=== PATIENT | male | born 1975 | race Caucasian/White ===

== ENCOUNTER 2023-05-19 00:53 | Emergency (ER) | payer MEDICAID, SELFPAY ==
[2023-05-19 00:59] VITALS: BP 183/123; PULSE 105; RESP 18; TEMP 37; O2SAT 98
--- NOTE | 2023-05-19 01:00 | DI.RAD_ITS ---
Exam(s) XR SHOULDER LT COMPLETE 2+V EXAM: XR SHOULDER LT COMPLETE 2+V CLINICAL HISTORY: pain s/p fall. TECHNIQUE: 2D digital imaging was performed. Three views. COMPARISON: No exams were available for comparison FINDINGS: BONES: There is a comminuted fracture of the humeral head and neck with involvement of the greater tu berosity. Chronic appearing density noted near AC joint. No bony destructive lesion is seen. JOINTS: No dislocation present. Mild widening of glenohumeral joint consistent with effusion. AC angelia int not widened. SOFT TISSUE: Normal. IMPRESSION: Mildly displaced humeral head and neck fracture. DATA REPOSITORY: RADIATION DOSE DELIVERED:
--- NOTE | 2023-05-19 01:07 | ED.GENADUL_ITS ---
Discharge Plan Disposition Patient Disposition: Home Condition: Stable Discharge Details Clinical Impression: Fracture of left shoulder ED Provider: Gavino Garza Discharge Instructions Instructions: Arm Fracture in Adults (ED) Additional Instructions: Call orthopedics later today to make a follow up appointment if you feel more ill, have severe worsening of pain or new pain such as head pain return to the emergency department Referrals: Will Umanzor MD [ [facility] STAFF PHYSICIAN] - Medical Decision Making 48 yo male who denies chronic medical problems comes in with left shoulder pain. HE states he was walking in his house within the last hour when he tripped on his shoe laces, landing on his left shoulder. Denies hitting his head or loc and denies preceding symptoms to the fall, states it was purely mechanical. He is caox4 on arrival with clear speech. No headache, neck pain, back pain, chest or abdomen pain, only has pain in the left shoulder area. No midline c/t/l spine tenderness, no signs of trauma to the head, perrl, eomi, no chest or abdomen tenderness. HE has tenderness over the left lateral shoulder and limited rom due to pain, intact distal sensation and pulses. No pain in the elbow, forearm, wrist or hand. Will obtain xrays of the shoulder, do not feel any labs or other imaging indicated at this time xray on my read shows shoulder fracture no shoulder dislocation. HE doesn't want to wait for vrad read, will call if they see anything else. Placed on ortho follow up list, return precautions given Differential Diagnosis Differential Diagnosis: sprain, contusion, fracture, dislocation Imaging Data Radiologic Study: Attestation: I personally reviewed and interpreted this imaging study as follows: Imaging: X-Ray My impression: xray on my read proximal humerus fracture, no shoulder dislocation HPI General Mode of arrival: ambulatory . Date/Time Provider Initiated Documentation: 05/19/23 00:55 . Limitations to Documentation: no limitations . Information obtained by: patient . History of Present Illness 48 year old M presents to the emergency department with the chief complaint of left shoulder pain, described as moderate, Patient started experiencing this hour(s) (1) and it has been constant. No relieving factors improve symptom(s), No exacerbating factors reported . Patient notes no other symptoms.. Patient did receive the following treatments prior to arrival, none Related Data Allergies Allergy/AdvReac Type Severity Reaction Status Date / Time No Known Allergies Allergy Unverified 05/19/23 01:32 General Stated Complaint: Orthopedic MARLEN: 3 Review of Systems All systems reviewed & are unremarkable except as noted in HPI and below Constitutional Constitutional: Denies chills, Denies fever(s) and Denies weakness Eyes Eyes: Denies loss of vision Cardiovascular Cardiovascular: Denies chest pain and Denies dyspnea Respiratory Respiratory: Denies cough and Denies dyspnea Gastrointestinal Gastrointestinal: Denies abdominal pain, Denies nausea and Denies vomiting Musculoskeletal Musculoskeletal: Denies joint swelling Neurologic Neurologic: Denies loss of vision and Denies weakness PFSH All Active Problems (Updated 05/19/23 @ 01:40 by Gavino Garza MD) Fracture of left shoulder (Acute) Social History Smoking/Tobacco Use Status: Current every day Tobacco Type: cigarettes Smoking risk assessment performed?: Yes Substance use type: marijuana Exam Const General: no acute distress Orientation: alert HENMT Head: normal to inspection Ears: external ears normal General nose exam: external nose normal Mouth: moist mucous membranes Eyes General: appearance normal, both eyes and all related structures Neck Neck: normal visual inspection Resp Effort & Inspection: normal respiratory effort and able to speak in complete sentences Cardio Rate: regular rate Skin General skin exam: no rashes or lesions noted Neuro General: patient alert and patient oriented x3 Extrem General: normal to inspection and capillary refill normal Psych Mental Status: mental status grossly normal Course Vital Signs Vital signs: Vital Signs Temperature 37.0 C 05/19/23 00:59 Pulse 105 H 05/19/23 00:59 Respiratory Rate 18 05/19/23 00:59 Blood Pressure 183/123 H 05/19/23 00:59 Pulse Oximetry 98 05/19/23 00:59 Temperature 37.0 C 05/19/23 00:59 Pulse 105 H 05/19/23 00:59 Respiratory Rate 18 05/19/23 00:59 Respiratory Effort Normal, Non-Labored 05/19/23 01:02 Blood Pressure 183/123 H 05/19/23 00:59 Blood Pressure Position Sitting 05/19/23 00:59 Pulse Oximetry 98 05/19/23 00:59 Oxygen Delivery Method Room Air 05/19/23 00:59 Oxygen Flow Rate 0 05/19/23 00:59 Pain Level 10 05/19/23 00:59 PAWSS Have you Been Recently Intoxicated or Drunk Within the Last 30 days?: No Have you Ever Experienced Previous Episodes of Alcohol Withdrawal?: No Have you ever Experienced Withdrawal Seizures?: No Have you ever Experienced Delirium Tremens(DT)s?: No Have you ever undergone Alcohol Rehabilitation Treatment (i.e, inpt ot outpatient treatment programs)?: No Have you ever Experienced Blackouts?: No Have you ever Combined Alcohol with other Downers within the last 90 days?: No Have you ever Combined Alcohol with any other Substance of Abuse during the last 90 days?: No Positive Blood Alcohol level on Presentation? [PCS.BAL]: No Evidence of Increased Autonomic Activity (i.e. HR>120, tremor, sweating, agitation, nausea)?: No Result: 0
[2023-05-19] MEDS: Ibuprofen 600 MG TAB PO (01:14)
[2023-05-19] MEDS: oxyCODONE 5 MG TAB PO (02:02)
[2023-05-19 02:06] VITALS: BP 196/136; PULSE 101; RESP 18; O2SAT 97
--- NOTE | 2023-05-19 02:10 | DI.VRAD_ITS ---
PROCEDURE INFORMATION: Exam: XR Left Shoulder Exam date and time: 05/19/2023 1:18 AM Age: 48 years old Clinical indication: Injury or trauma; Blunt trauma (contusions or hematomas); Shoulder; Left; Injury date: 05/18/23; Injury details: Pain S/P fall TECHNIQUE: Imaging protocol: Radiologic exam of the left shoulder. Views: 2 or more views. COMPARISON: No relevant prior studies available. FINDINGS: Bones/joints: There is comminuted mildly displaced fracture of the proximal left humerus centered about the surgical neck with longitudinal component involving the greater tuberosity which is mildly displaced as well. There is 1.9 cm ossific fragment projecting in the region of the left acromioclavicular joint on scapular Y-view however appears well corticated suggestive for chronic process or possibly os acromiale, nonspecific. Acromioclavicular and coracoclavicular intervals are preserved. No joint dislocation. Soft tissues: Left shoulder soft tissue edema. IMPRESSION: Comminuted, mildly displaced fracture of the proximal left humerus involving the greater tuberosity. Dictated and Authenticated by: Kris Russo MD. Ordering:LUIS Mancia MD
--- NOTE | 2023-05-24 09:01 | NUR.NOTE ---
Accessed Pts chart to obtain information for the [facility] document.
--- NOTE | 2023-05-24 09:03 | NUR.NOTE ---
Accessed Pt chart to obtain information for the [facility] documentation
== END 2023-05-19 02:07 | disposition home or self-care (01) ==
LOC: ER 02:09
PROVIDERS: Emergency Provider Emergency Medicine
DX: M25.512 Pain in left shoulder (principal); S42.92XA Fracture of left shoulder girdle, part unspecified, initial encounter for closed fracture; W01.0XXA Fall on same level from slipping, tripping and stumbling without subsequent striking against object, initial encounter
CPT/HCPCS: 99283; 73030; 99284

== ENCOUNTER 2023-05-26 09:20 | Outpatient (CLI) | payer MEDICAID, SELFPAY ==
--- NOTE | 2023-05-26 09:00 | DI.RAD_ITS ---
Exam(s) XR SHOULDER LT COMPLETE 2+V EXAM: XR SHOULDER LT COMPLETE 2+V CLINICAL HISTORY: F/U FRACTURE. TECHNIQUE: 2D digital imaging was performed of the left shoulder. Two images were obtained. Y and Grashey views were obtained. COMPARISON: CR,XR XR SHOULDER LT COMPLETE 2+V from 05/19/2023 FINDINGS: BONES: Stable alignment of the comminuted fracture involving the proximal left humerus. The fracture involves the surgical neck and the greater tuberosity. No bony destructive lesion is seen. There ap pears to be an os acromiale which is a normal variant. JOINTS: No dislocation present. SOFT TISSUE: The visualized lungs are clear. IMPRESSION: Stable alignment of the comminuted proximal left humeral fracture. DATA REPOSITORY: RADIATION DOSE DELIVERED:
--- NOTE | 2023-05-26 09:30 | DI.RAD_ITS ---
Exam(s) XR ELBOW LT COMPLETE EXAM: XR ELBOW LT COMPLETE CLINICAL HISTORY: left elbow pain. TECHNIQUE: 2D digital imaging was performed of the left elbow. Two images were obtained. AP and la teral views were obtained. COMPARISON: No exams were available for comparison FINDINGS: BONES: No acute fracture is present. No bony destructive lesion is seen. JOINTS: The elbow is normally aligned. No joint effusion is seen. SOFT TISSUE: Normal. IMPRESSION: Unremarkable radiographs of the left elbow. DATA REPOSITORY: RADIATION DOSE DELIVERED:
== END 2023-05-26 09:21 | disposition home or self-care (01) ==
PROVIDERS: Visit Provider Student in an Organized Health Care Education/Training Program
DX: S42.252D Displaced fracture of greater tuberosity of left humerus, subsequent encounter for fracture with routine healing (principal); M25.522 Pain in left elbow; X58.XXXD Exposure to other specified factors, subsequent encounter
CPT/HCPCS: 73030; 73080

== ENCOUNTER 2024-02-05 03:31 | Inpatient (IN) | payer MEDICAID, SELFPAY ==
[2024-02-05] VITALS (215 sets, daily range): BP systolic 79–213; BP diastolic 43–192; PULSE 32–133; RESP 9–46; TEMP 34.8–37; O2SAT 67–100
--- NOTE | 2024-02-05 03:30 | RT.EKG_ITS ---
APPROVED REPORT Exam: Resting ECG Reason for Exam: involuntary spasms Patient Location: E HR:79 bpm ECG Measurements Heart Rate 79 AXIS CA 129 P 80 QRSd 91 QRS 59 QT 375 T 41 QTc 431 Conclusion Sinus rhythm...normal P axis, V-rate 60- [address] segemnt or T wave abnormalities to suggest occlusive OR
--- NOTE | 2024-02-05 03:42 | DI.CT_ITS ---
Exam(s) CT HEAD WO EXAM: CT HEAD WO CLINICAL HISTORY: whole body tremors, head injury yesterday (frontal. TECHNIQUE: Imaging Protocol: Axial computed tomography images with coronal and sagittal reformatted images were created and reviewed COMPARISON: No exams were available for comparison FINDINGS: There is patient motion artifact. Ventricles and Extra axial spaces: Normal in size and morphology for the patient's age. Hemorrhage: None. Cerebral parenchyma: Normal. Midline shift: None. Brainstem/Cerebellum: Normal. Calvarium: Normal. Visualized Paranasal sinuses/Mastoids: There is opacification of several ethmoid air cells bilaterall y. There is mucosal thickening in the maxillary sinuses bilaterally. Soft Tissues: There is soft tissue swelling overlying the right frontal bone. IMPRESSION: 1. Within the limits of the examination, no acute intracranial process. 2. Examination is limited by patient motion artifact. If there is continued clinical concern, a repe at CT scan should be obtained. 3. Soft tissue swelling overlying the right frontal bone. RADIATION DOSE DELIVERED: 1,890.92mGy.cm Total DLP DATA REPOSITORY: All CT scans at this facility are submitted to the National Radiology Data Registry (NRDR) Dose Index Registry (DIR) with the [employer] (A[employer]). RADIATION OPTIMIZATION: All CT scans at this facility use at least one of these dose optimization te chniques: automated exposure control; mA and/or kV adjustment per patient size (includes targeted exa ms where dose is matched to clinical indication); or iterative reconstruction.
--- NOTE | 2024-02-05 03:48 | W.ED.GENAD ---
Discharge Plan Discharge Details Chief Complaint: DrugWithdr/MAT Primary Care Provider: Unknown,Unknown ED Provider: Norma Lobato Home Meds and New Rx's Prescriptions: No Action No Known Home Meds HPI General Date/Time Provider Initiated Documentation: 02/05/24 03:42. Limitations to Documentation: altered mental status. Information obtained by: patient and police. HPI Narrative: 49yo M arrives in policy custody for concern for withdrawal form fentanyl and crack/cocaine. Patient denies prior medical history. Regularly uses both, most recently yesterday evening. Patient complains of shaking, wants help getting tremors to stop. Reports seeing weird stuff, cannot clarify what. Denies AH, SI, HI. No chest pain, shortness of breath, body aches. Received tylenol, ibuprofen, hydroxizine, and clonidine prior to arrival. Reports that he fell in the shower yesterday and struck his head. Otherwise in his usual state of health with no fevers, chills, rash, nausea, vomiting, abdominal pain, numbness, tingling, weakness, blurry vision, double vision, LE edema, or other concerns. Related Data Home Medications Medication Instructions Recorded Confirmed Unknown [No Known Home Meds] 05/26/23 05/26/23 Allergies Allergy/AdvReac Type Severity Reaction Status Date / Time No Known Allergies Allergy Unverified 05/26/23 09:11 General Stated Complaint: DrugWithdr/MAT MARLEN: 3 Review of Systems Narrative: see HPI Exam Narrative Exam Narrative: General: Alert, appears older than stated age. Slightly diaphoretic. Head: Normocephalic. Echymosis and swelling to right forehead. Neck: Trachea midline, ?Neck supple. ENT: ?MMM.? Cardiac: ?Tachycardiac, regular, no murmurs appreciated Resp: No respiratory distress. CTAB. Abd: ?Soft, non-distended, nontender : ?No suprapubic tenderness. No CVA tenderness. Echymosis in suprapubic area with small midline healing laceration (? suprapubic catheter, pt unable to clarify) Extremities: ?No deformities.? No peripheral edema. Neuro: ? GCS 15.? Slight mydriasis. PERRL.? EOMI.? Fluent speech, no dysarthria. Motor- Moves all extremities freely against gravity. Good strength throughout. Sensation- ?Intact to light touch and symmetric multiple dermatomes including upper and lower extremities Reflexes- 2/4 achilles, no clonus CRANIAL NERVES: II: Pupils equal and reactive, III, IV, : EOM intact, no gaze preference or deviation, no nystagmus. V: normal sensation in V1, V2, and V3 segments bilaterally VII: no asymmetry, no nasolabial fold flattening VIII: normal hearing to speech IX, X: normal palatal elevation, no uvular deviation XI: Not tested (pt previously attempted to bite staff) XII: midline tongue protrusion Course Vital Signs Vital signs: Vital Signs Temperature 36.3 C L 02/05/24 03:28 Pulse 95 H 02/05/24 03:28 Respiratory Rate 26 H 02/05/24 03:28 Blood Pressure 172/132 H 02/05/24 03:28 Pulse Oximetry 98 02/05/24 03:28 Temperature 36.3 C L 02/05/24 03:28 Temperature Source Temporal Artery Scan 02/05/24 03:28 Pulse 95 H 02/05/24 03:28 Respiratory Rate 26 H 02/05/24 03:28 Respiratory Effort Normal 02/05/24 03:36 Respiratory Pattern Normal 02/05/24 03:36 Blood Pressure 172/132 H 02/05/24 03:28 Blood Pressure Position Sitting 02/05/24 03:28 Pulse Oximetry 98 02/05/24 03:28 Oxygen Delivery Method Room Air 02/05/24 03:28 Oxygen Flow Rate 0 02/05/24 03:28 Medical Decision Making 49yo M arrives in policy custody for concern for withdrawal form fentanyl and crack/cocaine. Reports last use yesterday evening; denies body packing. Patient denies prior medical history including no prior seizures. Primary concern is 'shaking' which started overnight, Dannielle also report agitation. Hypertensive at 170's/130's on arrival as well as slightly tachycardiac, afebrile. On exam he intermittent tremors involving his whole body (sometimes all at once, sometimes isolated extremities). These are suppressible; able to hold still for EKG. Non-focal neurological exam. Does have slight mydriasis and diaphoresis. Not overtly septic. Overall most consistent with sympathomimetic toxidrome. Not consistent with seizures. Will evaluate for hypertensive urgency and/or end-organ involvement with EKG and labs. Given recent head injury, out of abundance of caution will also get head CT despite non-focal neurologic exam. Will treat symptoms with 2mg IV ativan, give 1L IVFB. -EKG on arrival NSR, appropriate intervals, no ST segment or T wave abnormalities to suggest occlusive NM. -Pt subsequently became more agitated, attempted to bite staff/Dannielle. In handcuffs/shackles on arrival which were maintained; will add chemical restraint with additional benzodiazapines. Given 5mg IV Versed. Avoiding antipsychotics in the setting of likely cocaine intoxication. -Patient with continued agitated and tremors, unable to tolerate CT in this state. Medicated with additional doses of IV Versed (5-10mg each) every 5 minutes for a total of 55mg over approximately 1 hour. I remained at bedside and accompanied PT to CT throughout this time period. BP and tremors both improved though he does remain moderately hypertensive and with intermittent tremors. Labs reviewed as below, CBC with leukocytosis to 17, CMP with no actionable abnormalities, ETOH negative, coags normal, initial troponin negative, CK borderline elevated at 378. Delta troponin and repeat CK ordered. CT independently reviewed, no ICH on my view, agree with radiology read below. On reassessment again has motor agitation, pulling at cuffs/shackles. No aggressive behavior towards staff. Given additional 10mg IV versed to treat presumed cocaine intoxication. Discussed with poison control; they agree with plan to repeat troponin and CK, continued fluids. Presentation though to be concerning for sympathomimetic vs serotonin syndrome as cocaine does have serotinergic effects. If continued psychomotor agitation would consider starting precedex gtt. On reassessment patient with continued psychomotor agitation, writhing, despite not being fully alert. Will start precedex gtt, order CT scan to eval for body packing. Signed out to oncoming physician, plan to followup repeat labs, UA, CT. May need sedation prior to CT contingent on effectiveness of precedex. Per poison control no contraindications to ketamine. Imaging Data Radiologic Study: Imaging: CT Scan Radiologist's impression: IMPRESSION: 1. Study limited by motion/artifact despite multiple attempts. 2. Partial opacification of the frontal and ethmoid air cells compatible with sinusitis. 3. No acute brain findings. Lab Data Lab results reviewed: Yes I reviewed the patient's lab results. Labs: Laboratory Tests Range/Units 02/05/24 02/05/24 02/05/24 03:32 03:32 03:32 WBC (4.4-10.8) 10^3/uL 17.51 H RBC (4.36-5.78) 10^6/uL 5.16 Hgb (13.5-17.5) g/dL 14.6 Hct (40.0-50.0) % 44.2 MCV (80-95) fL 86 MCH (27.0-33.0) pg 28.3 MCHC (32.0-36.0) % 33.0 RDW (11.8-14.1) % 12.7 Plt Count (130-400) 10^3/uL 438 H MPV (8.0-11.0) fL 10.0 Immature Gran % % 0.4 Neutrophils % % 77.8 Lymphocytes % % 12.7 Monocytes % % 6.7 Eosinophils % % 1.8 Basophils % % 0.6 Nucleated RBC % (0.0-0.3) % 0.0 Absolute Neutrophils (1.2-6.7) 10^3/uL 13.62 H Absolute Lymphocytes (1.2-3.4) 10^3/uL 2.22 Absolute Monocytes (0.1-0.8) 10^3/uL 1.17 H Absolute Eosinophils (0.0-0.7) 10^3/uL 0.32 Absolute Basophils (0.0-0.2) 10^3/uL 0.11 PT (9.1-11.1) sec 11.0 INR (0.9-1.1) 1.1 APTT (23.6-32.8) sec 29.7 Sodium (136-145) mmol/L 139 Potassium (3.5-5.1) mmol/L 3.8 Chloride (98-107) mmol/L 101 Carbon Dioxide (21.0-32.0) mmol/L 27.2 Anion Gap (3-11) mmol/L 10.8 BUN (7-18) mg/dL 8 Creatinine (0.70-1.30) mg/dL 1.1 Est GFR (CKD-EPI 2020) (mL/min/1.73m2) 83.32 Glucose (74-106) mg/dL 129 H Calcium (8.5-10.1) mg/dL 9.3 Total Bilirubin (0.2-1.0) mg/dL 0.63 AST (15-37) U/L 25 ALT (16-63) U/L 25 Alkaline Phosphatase (46-116) U/L 27 L Creatine Kinase (39-308) U/L 378 H 390 H Troponin I (< or =60) ng/L < 50 < 50 Total Protein (6.4-8.2) g/dL 8.4 H Albumin (3.4-5.0) g/dL 3.7 Ethyl Alcohol (<10) mg/dL < 3.0 Quality:[facility] Health Related Social Needs: No Data to Display Critical Care Time Critical Care Time Total Critical Care Time: 32 Attestation: Due to a high probability of clinically significant, life threatening deterioration, the patient required my highest level of preparedness to intervene emergently and I personally spent this critical care time directly and personally managing the patient. This critical care time included obtaining a history; examining the patient; pulse oximetry; ordering and review of studies; arranging urgent treatment with development of a management plan; evaluation of patient's response to treatment; frequent reassessment; and, discussions with other providers. This critical care time was performed to assess and manage the high probability of imminent, life-threatening deterioration that could result in multi-organ failure. It was exclusive of separately billable procedures and treating other patients [facility] All Active Problems (Updated 06/19/23 @ 00:01 by TAHIRA FUENTES) Closed fracture of left proximal humerus (Acute 05/19/23) Left elbow pain (Acute) Social History Smoking/Tobacco Use Status: Current every day Tobacco Type: cigarettes Smoking risk assessment performed?: Yes Drug use: Daily Substance use type: marijuana, crack/cocaine and opiates Current gender identity: male Restraint Face to Face Time of Face to Face Face to Face: Time of Face to Face: 04:14 Patient's Immediate Situation Requiring Restraints/Seclusion: Harm to Staff & Others Patient's Medical & Behavioral Condition: Patient writhing on stretcher in police handcuffs and shackles, whole body tremors, agitated. Unable to verbally redirect. Attempted to bite staff. 2nd Face to Face: Time of Face to Face: 05:10 Patient Response to Restraints: Tolerating with minimum Problems Patient's Medical & Behavioral Condition: Appears to be resting comfortably. Tolerated transfer to CT and back without complication. Would not re-dose chemical restraint at this time. Patient does remain in handcuffs and shackles in police custody. Need for Continuation of Restraints Has Been Assessed: Restraints Terminated
[2024-02-05] MEDS: LORazepam 2 MG/ML VIAL IVP (03:49)
[2024-02-05] MEDS: Normal Saline 1,000 ML 1000 ML IV (03:50)
[2024-02-05] MEDS: Midazolam 2 MG/2 ML VIAL 5 MG IVP (04:00)
[2024-02-05 04:02] LABS: Abs Immature Grans 0.07 10^3/uL (0.0-0.06); Absolute Basophil Count 0.11 10^3/uL (0.0-0.2); Absolute Eosinophil Count 0.32 10^3/uL (0.0-0.7); Absolute Lymphocyte Count 2.22 10^3/uL (1.2-3.4); Absolute Monocyte Count 1.17 10^3/uL (0.1-0.8); Absolute Neutrophil Count 13.62 10^3/uL (1.2-6.7); Basophils % 0.6 %; Eosinophils % 1.8 %; HCT 44.2 % (40.0-50.0); HGB 14.6 g/dL (13.5-17.5); Immature Grans % 0.4 %; Lymphocytes % 12.7 %; MCH 28.3 pg (27.0-33.0); MCV 86 fL (80-95); Monocytes % 6.7 %; Neutrophils % 77.8 %; Platelet Count 438 10^3/uL (130-400); RBC 5.16 10^6/uL (4.36-5.78); RDW 12.7 % (11.8-14.1); RDW-SD 39.6 fL; WBC 17.51 10^3/uL (4.4-10.8)
[2024-02-05 04:12] LABS: INR 1.1 (0.9-1.1); PTT Activated 29.7 sec (23.6-32.8)
[2024-02-05 04:14] LABS: ALT 25 U/L (16-63); AST 25 U/L (15-37); Albumin 3.7 g/dL (3.4-5.0); Alkaline Phosphatase 27 U/L (46-116); Anion Gap 10.8 mmol/L (3-11); BUN 8 mg/dL (7-18); Bilirubin, Total 0.63 mg/dL (0.2-1.0); CO2 27.2 mmol/L (21.0-32.0); CREATININE 1.1 mg/dL (0.70-1.30); Calcium 9.3 mg/dL (8.5-10.1); Chloride 101 mmol/L (98-107); Creatine Kinase 378 U/L (39-308); Estimated GFR 83.32 (mL/min/1.73m2); Glucose 129 mg/dL (74-106); Potassium 3.8 mmol/L (3.5-5.1); Sodium 139 mmol/L (136-145); Total Protein 8.4 g/dL (6.4-8.2); Troponin I < 50 ng/L (< or =60)
[2024-02-05] MEDS: Midazolam 10 MG/2 ML VIAL NS ×2 (04:42→04:50)
[2024-02-05 05:03] LABS: ETHANOL BLOOD < 3.0 mg/dL (<10)
[2024-02-05] MEDS: Midazolam 10 MG/2 ML VIAL 5 MG NS (05:08)
[2024-02-05 05:31] LABS: Creatine Kinase 390 U/L (39-308); Troponin I < 50 ng/L (< or =60)
--- NOTE | 2024-02-05 05:31 | DI.VRAD_ITS ---
PROCEDURE INFORMATION: Exam: CT Head Without Contrast Exam date and time: 02/05/2024 5:05 AM Age: 49 years old Clinical indication: Injury or trauma; Other: Whole body tremors, head injury yesterday (frontal; Blunt trauma (contusions or hematomas); Consciousness not specified TECHNIQUE: Imaging protocol: Computed tomography of the head without contrast. COMPARISON: No relevant prior studies available. FINDINGS: Brain: No brain edema. No intracranial hemorrhage. Cerebral ventricles: No ventriculomegaly. Paranasal sinuses: Partial opacification of the frontal and ethmoid air cells compatible with sinusitis. Mastoid air cells: Unremarkable. Bones: Unremarkable. No acute fracture. Soft tissues: Right frontal scalp contusion. Other findings: Study limited by motion/artifact despite multiple attempts. IMPRESSION: 1. Study limited by motion/artifact despite multiple attempts. 2. Partial opacification of the frontal and ethmoid air cells compatible with sinusitis. 3. No acute brain findings. Dictated and Authenticated by: Choco Sanchez MD. Ordering:ARASH Green MD
[2024-02-05] MEDS: Midazolam 2 MG/2 ML VIAL 10 MG IVP (06:15)
--- NOTE | 2024-02-05 06:30 | DI.CT_ITS ---
Exam(s) CT ABDOMEN PELVIS WO EXAM: CT ABDOMEN PELVIS WO CLINICAL HISTORY: persistent drug intox, ? foreign body/packing. TECHNIQUE: Imaging Protocol: Axial computed tomography images with coronal and sagittal reformatted images were created and reviewed. COMPARISON: No exams were available for comparison FINDINGS: Examination is limited by lack of IV contrast material. ABDOMEN: Lung Bases: Normal where visualized. Liver: Normal density. No measurable mass. Gallbladder and biliary tract: No radiodense calculus or biliary ductal dilation. Pancreas: Normal density, no abnormal calcifications or inflammatory process. Spleen: Normal. Kidneys: Normal size, contour and axis.No radiodense stones or obstructive uropathy. No masses seen. Adrenal glands: No mass is seen. Lymph nodes: Within normal limits. Abdominal Aorta: Abdominal portion non-dilated. Atherosclerotic calcification is present. PELVIS: Bladder:There is a catheter in the urinary bladder. There is mild thickening of the wall of the urin shital bladder which may be due to underdistention. Bowel: Anastomotic clips are seen in the right colon. No bowel wall thickening or obstruction. Ther e is an ovoid air collection in the rectum measuring 5.7 cm long by 3.6 cm transverse. (Series 4, im age 53) this may represent a foreign body. No evidence of appendicitis. The tip of the enteric tube is in good position in the stomach. Peritoneal cavity: No ascites, collection or mesenteric inflammatory response. No free air. Reproductive organs: Unremarkable as visualized. Bones: Within normal limits. There is L5 spondylolysis. No significant spondylolisthesis. Soft Tissues: Within normal limits. IMPRESSION: 1. 5.7 x 3.6 cm ovoid air collection suggesting a foreign body in the rectum. Please correlate with physical exam. 2. The tip of the enteric tube is seen in the stomach in good position. 3. No acute abdominal or pelvic process. RADIATION DOSE DELIVERED: 846.54mGy.cm Total DLP DATA REPOSITORY: All CT scans at this facility are submitted to the National Radiology Data Registry (NRDR) Dose Index Registry (DIR) with the [employer] (ACR). RADIATION OPTIMIZATION: All CT scans at this facility use at least one of these dose optimization te chniques: automated exposure control; mA and/or kV adjustment per patient size (includes targeted exa ms where dose is matched to clinical indication); or iterative reconstruction.
--- NOTE | 2024-02-05 07:00 | DI.CT_ITS ---
Exam(s) CT HEAD WO EXAM: CT HEAD WO CLINICAL HISTORY: altered mental status, tremors (repeat). TECHNIQUE: Imaging Protocol: Axial computed tomography images with coronal and sagittal reformatted images were created and reviewed COMPARISON: CT CT HEAD WO from 02/05/2024 FINDINGS: Ventricles and Extra axial spaces: Normal in size and morphology for the patient's age. Hemorrhage: None. Cerebral parenchyma: Normal. No evidence of an acute territorial infarct. Midline shift: None. Brainstem/Cerebellum: Normal. Calvarium: Normal. Visualized Paranasal sinuses/Mastoids: There is mucosal thickening in the visualized paranasal sinuse s. The mastoid air cells are clear. Soft Tissues: There is soft tissue swelling overlying the right frontal bone. The patient has both a n enteric and an endotracheal tube. IMPRESSION: No acute intracranial process. RADIATION DOSE DELIVERED: 797.21mGy.cm Total DLP DATA REPOSITORY: All CT scans at this facility are submitted to the National Radiology Data Registry (NRDR) Dose Index Registry (DIR) with the [employer] (ACR). RADIATION OPTIMIZATION: All CT scans at this facility use at least one of these dose optimization te chniques: automated exposure control; mA and/or kV adjustment per patient size (includes targeted exa ms where dose is matched to clinical indication); or iterative reconstruction.
[2024-02-05] MEDS: dexmedeTOMidine IN 0.9 % NACL 400 MCG/100 ML BTL 6.804 MCG IV (07:03)
--- NOTE | 2024-02-05 07:17 | ED.PROG_ITS ---
Date of service: 02/05/24 Time of Service: 07:17 Medical Decision Making I received signout on this patient bedside. In brief this is a 49-year-old male currently in police custody with a history of opiate use who reportedly used cocaine and fentanyl. He arrived alert oriented with akathisia and a suppressible tremor. He was tachycardic hypertensive with dilated pupils. He received initially some lorazepam and subsequently 65 mg of midazolam to facilitate CT head as he had some trauma to his forehead. He received a total of a liter and half of fluids. On reassessment patient had pinpoint pupils that were deviated down. He had been incontinent of urine. He is pending a CT of his abdomen to ensure that he does not have additional cocaine intra-abdominal in packets. He is also pending a repeat CT head as there is significant motion artifact and his original scan. I am concerned about the possibility of a seizure so I gave patient 10 mg of diazepam. Will also load with levetiracetam 2 g which is approximately 30 mg/kg. 7:55 AM Patient persistently thrashing. Pinpoint pupils. Post 10 of diazepam with perhaps some minor improvement in his thrashing. Will escalate to 20 mg. His dexmedetomidine infusion is at 0.8 mcg/kg/h. RT is at bedside. Patient is on end-tidal CO2. Negative lactate. Negative ammonia. Negative troponin. Normal TSH. Comprehensive metabolic panel with slightly improved renal function that remains within normal limits. No acute electrolyte abnormalities. CK mildly increased compared to prior not consistent with rhabdomyolysis. Normal reassuring lactate. 8:20 AM Patient slightly more calm following 20 mg of diazepam. Negative acetaminophen level. Negative salicylate level. 9 AM Urinalysis nitrite leukoesterase negative not consistent with UTI. Urine drug screen positive for THC, cocaine, and benzodiazepines. Patient intubated with propofol and rocuronium to facilitate ongoing evaluation and workup. Please see procedure note. He will require repeat CT head and dry abdominal scan. 9:35 AM Patient had MAP less than 65 on propofol. Will initiate norepinephrine drip. 10:24 AM I was called to CT scan as patient reportedly became hypoxic and bradycardic. When I arrived he had a pulse. He did not require chest compressions. He was t ransiently difficult to bag. By the time I took over bagging he was bagging easily. Blood pressure was repeated and was in the 120s. I spoke with Dr. Mayers who requested CTA chest. 10:30 AM I spoke with Dr. Mayers who graciously agreed to accept the patient for hospitalization. 11:[address] abdomen pelvis reported suggestion of a 5 x 2 cm linear rectal foreign body filled with air. At bedside digital rectal exam patient had no obvious foreign bodies. I completed an anoscopic exam and there were no obvious foreign bodies. Patient did have some rectal mucus. Will touch base with general surgery to have them review scan. 11:53 AM I spoke with Dr. Biggs who will come to complete flexible sigmoidoscopy. 4:13 PM Flexible sigmoidoscopy negative for any foreign bodies. Patient hospitalized to the medical service. Quality:[facility] Health Related Social Needs: No Data to Display Procedures Intubation Time out performed: Yes sedative: other (Propofol 2 mg/kg) paralytic: Rocuronium (1.2 mg/kg) Laryngoscope: other ([place] scope) ET Tube Size: 7.5 ET Tube Uncuffed: No Tube Secured Depth (cm): 24 Tube Secured Location: other (Gum) Tube Placement Confirmation: visualized tube passing through cords, equal breath sounds bilaterally and confirmation by capnometry Patient Tolerated Procedure: well Intubation Complications: none Critical Care Time Critical Care Time Critical Care Time: Yes Total Critical Care Time: 60 Attestation: Bedside monitoring agitation intermittently requiring airway repositioning Sign Out Sign Out Data: Sign Out Comment: Polysubstance use, likely cocaine intoxication. S/p 65mg versed, starting precedex gtt now. Pending repeat trop & CK, CT for body packing. Anticipate ICU admission. Last updated by Norma Lobato MD at 02/05/24 07:11 Discharge Plan Disposition Patient Disposition: Admit to [facility] Discharge Details Clinical Impression: Acute encephalopathy Admit Date/Time: 02/05/24 14:32 Admit Provider: Lanre López Attending Provider: Lanre López Primary Care Provider: Unknown,Unknown ED Provider: Nestor Melton Discharge Data Discharge Date/Time-TO BE ENTERED AT DEPARTURE: 02/05/24 15:27 Restraint Face to Face Time of Face to Face Face to Face: Time of Face to Face: 08:00 Patient's Immediate Situation Requiring Restraints/Seclusion: Harm to Patient Patient Response to Restraints: Tolerating without Problems Patient's Medical & Behavioral Condition: Patient was in prehospital bilateral upper and lower extremity handcuffed. To facilitate positioning on the bed we loosened handcuffs and applied hard restrai nts. Patient tolerated this procedure well in the setting of diazepam pushs. Need for Continuation of Restraints Has Been Assessed: Restraints Co ntinued 2nd Face to Face: Time of Face to Face: 09:02 Patient's Immediate Situation Requiring Restraints/Seclusion: Harm to Patient Patient Response to Restraints: Tolerating without Problems Patient's Medical & Behavioral Condition: Restraints continued following intubation. Patient now calm. Need for Continuation of Restraints Has Been Assessed: Restraints Co ntinued
[2024-02-05] MEDS: diazePAM 10 MG/2 ML SYR IVP (07:29)
[2024-02-05 07:48] LABS: Ammonia 27 umol/L (11-32)
[2024-02-05 07:55] LABS: ALT 20 U/L (16-63); AST 23 U/L (15-37); Albumin 3.1 g/dL (3.4-5.0); Alkaline Phosphatase 23 U/L (46-116); Anion Gap 9.4 mmol/L (3-11); BUN 7 mg/dL (7-18); Bilirubin, Total 0.73 mg/dL (0.2-1.0); CO2 23.6 mmol/L (21.0-32.0); CREATININE 0.9 mg/dL (0.70-1.30); Calcium 8.5 mg/dL (8.5-10.1); Chloride 109 mmol/L (98-107); Creatine Kinase 423 U/L (39-308); Estimated GFR 106.01 (mL/min/1.73m2); Glucose 115 mg/dL (74-106); Potassium 3.7 mmol/L (3.5-5.1); Sodium 142 mmol/L (136-145); TSH (W/Ref FT4) 1.22 uIU/mL (0.36-3.74); Total Protein 7.3 g/dL (6.4-8.2); Troponin I < 50 ng/L (< or =60)
[2024-02-05] MEDS: levETIRAcetam 2,000 MG in Normal Saline 100 ML 400 MG IVPB (07:58)
[2024-02-05] MEDS: diazePAM 10 MG/2 ML SYR 20 MG IVP (07:59)
[2024-02-05 08:11] LABS: Salicylate < 2.8 mg/dL (<2.8)
[2024-02-05 08:15] LABS: Acetaminophen < 2 ug/mL (10-30)
--- NOTE | 2024-02-05 08:30 | DI.RAD_ITS ---
Exam(s) XR PORTABLE CHEST AP EXAM: XR PORTABLE CHEST AP CLINICAL HISTORY: Confirm tube TECHNIQUE: 2D digital imaging was performed of the chest. One image was obtained. An AP view was ob tained. COMPARISON: No exams were available for comparison FINDINGS: The lung apices were not included on this examination. MEDIASTINUM: Normal. HEART: Normal. PULMONARY VASCULATURE: Normal. LUNGS: Clear. PLEURAL SPACE: No pleural effusion is seen. The lung apices were not included but no large pneumotho rax is seen. BONE:Within normal limits for the patient's age. OTHER FINDINGS:The tip of the enteric tube is in good position in the stomach. The tip of the endotr acheal tube is 2.8 cm above the grant. IMPRESSION: No acute pulmonary findings. DATA REPOSITORY: RADIATION DOSE DELIVERED:
[2024-02-05 08:48] LABS: Bilirubin Negative (Negative); Blood Trace-lysed (Negative); Clarity Clear (Clear); Glucose Negative (Negative); Ketones Negative (Negative); Leukocyte Esterase Negative (Negative); Nitrite Negative (Negative); Specific Gravity 1.015 (1.005-1.025); Urobilinogen 0.2 mg/dL (Up to 0.2)
[2024-02-05] MEDS: Normal Saline 1,000 ML 125 ML IV (08:50)
[2024-02-05] MEDS: Propofol 200 MG/20 ML VIAL 140 MG IVP (08:51)
[2024-02-05] MEDS: Rocuronium 50 MG/5 ML SYR 80 MG IVP (08:51)
[2024-02-05 08:56] LABS: *AMPHETAMINES SCREEN URINE Negative (Negative); *BARBITURATES SCREEN URINE Negative (Negative); *BENZODIAZEPINES SCREEN URINE Positive (Negative); Bacteria Rare HPF (Negative); C & S Indicated? No; Cannabinoids THC Positive (Negative); Casts Negative LPF (Negative); Cocaine Screen,Urine Positive (Negative); Crystals Negative HPF (Negative); Epithelial Cells Rare HPF (Negative); METHADONE URINE SCREEN Negative (Negative); Mucus Negative (Negative); OPIATES URINE SCREEN Negative (Negative); RBC 0-2 HPF (0-2); WBC Negative HPF (0-5)
[2024-02-05 08:58] LABS: Tricyclic Antidepressants Negative (Negative)
[2024-02-05] MEDS: PROPOFOL 500 MG/50 ML BTL 28.576 MG IV ×2 (09:00→16:15)
[2024-02-05] MEDS: HYDROmorphone 2 MG/ML SYR (09:00)
--- NOTE | 2024-02-05 09:00 | DI.RAD_ITS ---
Exam(s) XR PORTABLE CHEST AP EXAM: XR PORTABLE CHEST AP CLINICAL HISTORY: Confirm tube TECHNIQUE: 2D digital imaging was performed of the chest. One image was obtained. An AP view was ob tained. COMPARISON: CR,XR XR PORTABLE CHEST AP from 02/05/2024 FINDINGS: The endotracheal and enteric tubes are stable in position. MEDIASTINUM: Normal. HEART: Normal. PULMONARY VASCULATURE: Normal. LUNGS: Clear. PLEURAL SPACE: No pleural effusion or pneumothorax. BONE:Within normal limits for the patient's age. OTHER FINDINGS:Normal. IMPRESSION: No acute pulmonary findings. DATA REPOSITORY: RADIATION DOSE DELIVERED:
--- NOTE | 2024-02-05 09:15 | DI.RAD_ITS ---
Exam(s) XR PORTABLE CHEST AP EXAM: XR PORTABLE CHEST AP CLINICAL HISTORY: Confirm OG TECHNIQUE: 2D digital imaging was performed of the chest. One image was obtained. An AP view was ob tained. COMPARISON: CR,XR XR PORTABLE CHEST AP from 02/05/2024 FINDINGS: MEDIASTINUM: Normal. HEART: Normal. PULMONARY VASCULATURE: Normal. LUNGS: Clear. PLEURAL SPACE: No pleural effusion or pneumothorax. BONE:Within normal limits for the patient's age. OTHER FINDINGS:The endotracheal tube tip is seen 2.8 cm above the grant. The enteric tube tip is 4 cm above the hemidiaphragm in the distal esophagus. IMPRESSION: 1. The enteric tube tip is 4 cm above the hemidiaphragm in the distal esophagus. 2. No focal infiltrates. DATA REPOSITORY: RADIATION DOSE DELIVERED:
[2024-02-05] MEDS: Norepinephrine in D5W 8 MG/250 ML BAG 13.125 MG IV (09:39)
--- NOTE | 2024-02-05 10:19 | DI.VRAD_ITS ---
PROCEDURE INFORMATION: Exam: XR Chest Exam date and time: 02/05/2024 9:10 AM Age: 49 years old Clinical indication: Device placement; Ng tube TECHNIQUE: Imaging protocol: Radiologic exam of the chest. Views: 1 view. COMPARISON: CR XR SHOULDER LT COMPLETE 2+V 05/26/2023 9:32 AM FINDINGS: Tubes, catheters and devices: The endotracheal tube tip is 3 cm above the grant in the mid thoracic trachea. Enteric tube tip projects over the gastric bubble. Lungs: Unremarkable. No consolidation. Pleural spaces: Unremarkable. No pleural effusion. No pneumothorax. Heart/Mediastinum: The heart size is normal for technique. Bones/joints: Unremarkable. IMPRESSION: 1. ET tube tip in the mid thoracic trachea. 2. Enteric tube tip projects over the gastric bubble. Dictated and Authenticated by: Tam Vanegas MD. Ordering:BRITTANY Baez MD
--- NOTE | 2024-02-05 10:19 | DI.VRAD_ITS ---
PROCEDURE INFORMATION: Exam: XR Chest Exam date and time: 02/05/2024 9:16 AM Age: 49 years old Clinical indication: Device placement; Ng tube TECHNIQUE: Imaging protocol: Radiologic exam of the chest. Views: 1 view. COMPARISON: CR XR PORTABLE CHEST AP 02/05/2024 9:10 AM FINDINGS: Tubes, catheters and devices: The endotracheal tube tip is 3 cm above the grant in the mid thoracic trachea. Enteric tube tip projects over the gastric bubble. Lungs: Unremarkable. No consolidation. Pleural spaces: Unremarkable. No pleural effusion. No pneumothorax. Heart/Mediastinum: The heart size is normal for technique. Bones/joints: Unremarkable. IMPRESSION: 1. ET tube tip in the mid thoracic trachea. 2. Enteric tube tip projects over the gastric bubble. Dictated and Authenticated by: Tam Vanegas MD. Ordering:BRITTANY Baez MD
--- NOTE | 2024-02-05 10:20 | DI.VRAD_ITS ---
PROCEDURE INFORMATION: Exam: XR Chest Exam date and time: 02/05/2024 9:21 AM Age: 49 years old Clinical indication: Device placement; Ng tube TECHNIQUE: Imaging protocol: Radiologic exam of the chest. Views: 1 view. COMPARISON: CR XR PORTABLE CHEST AP 02/05/2024 9:16 AM FINDINGS: Tubes, catheters and devices: The endotracheal tube tip is 3 cm above the grant in the mid thoracic trachea. Enteric tube tip projects over the distal esophagus. Lungs: Unremarkable. No consolidation. Pleural spaces: Unremarkable. No pleural effusion. No pneumothorax. Heart/Mediastinum: The heart size is normal for technique. Bones/joints: Unremarkable. IMPRESSION: 1. ET tube tip in the mid thoracic trachea. 2. Enteric tube tip projects over the distal esophagus. Dictated and Authenticated by: Tam Vanegas MD. Ordering:BRITTANY Baez MD
--- NOTE | 2024-02-05 10:25 | DI.VRAD_ITS ---
PROCEDURE INFORMATION: Exam: CT Head Without Contrast Exam date and time: 02/05/2024 10:01 AM Age: 49 years old Clinical indication: Other: Altered mental status, tremors (repeat) TECHNIQUE: Imaging protocol: Computed tomography of the head without contrast. COMPARISON: CT HEAD WO 02/05/2024 5:05 AM FINDINGS: Tubes, catheters and devices: The patient is intubated. Brain: Normal. No hemorrhage. Unremarkable white matter. No mass effect. Cerebral ventricles: No ventriculomegaly. Paranasal sinuses: Mucosal thickening in the anterior ethmoid air cells, maxillary, sphenoid and frontal sinuses. No paranasal sinus air-fluid levels. Mastoid air cells: Visualized mastoid air cells are well aerated. Bones: Unremarkable. No acute fracture. Soft tissues: Trace frontal scalp contusion. IMPRESSION: No acute intracranial abnormality. Dictated and Authenticated by: Tam Vanegas MD. Ordering:ARASH Green MD
--- NOTE | 2024-02-05 10:40 | DI.CT_ITS ---
Exam(s) CT CHEST PE CTA EXAM: CT CHEST PE CTA CLINICAL HISTORY: Hypoxia. TECHNIQUE: Imaging Protocol: Axial CT angiography was performed with multi-slice acquisition and mu lti-planar and/or 3D reconstructions. CONTRAST MATERIAL: Intravenous: Omnipaque 350 contrast volume:65 mL COMPARISON: No exams were available for comparison FINDINGS: Tracheobronchial tree: The tip of the endotracheal tube is 2.2 cm above the grant. Pulmonary parenchyma: Linear atelectasis is seen in the lung bases. No architectural distortion. Pulmonary Arteries: No evidence of filling defect to suggest pulmonary emboli. Mediastinum and Cami: No dominant adenopathy or fluid collection. The esophagus is unremarkable. Th e enteric tube passes into the stomach in good position. Visualized thyroid gland: Unremarkable. Pleura: No effusion or pneumothorax. Heart: The heart is not dilated. Mild coronary artery calcification is present. No pericardial effus ion. Aorta: Thoracic aorta non-dilated. No evidence of dissection. Atherosclerotic calcification is presen t. Tubes, Catheters, and Lines: The tip of the enteric tube is seen in good position in the stomach. Th e tip of the endotracheal tube is 2.2 cm above the grant. Soft tissues: Unremarkable. Bones: Within normal limits for the patient's age.There is an old fracture deformity of the sternum. IMPRESSION: No evidence of pulmonary embolism, thoracic aortic dissection or aneurysm. RADIATION DOSE DELIVERED: 384.93mGy.cm Total DLP DATA REPOSITORY: All CT scans at this facility are submitted to the National Radiology Data Registry (NRDR) Dose Index Registry (DIR) with the [employer] (ACR). RADIATION OPTIMIZATION: All CT scans at this facility use at least one of these dose optimization te chniques: automated exposure control; mA and/or kV adjustment per patient size (includes targeted exa ms where dose is matched to clinical indication); or iterative reconstruction.
[2024-02-05] MEDS: Omnipaque 350 MG/ML 100 ML BTL IJ (10:42)
[2024-02-05] MEDS: Normal Saline - Diluent 50 ML VIAL IJ (10:42)
--- NOTE | 2024-02-05 10:57 | DI.VRAD_ITS ---
PROCEDURE INFORMATION: Exam: CTA Chest With Contrast Exam date and time: 02/05/2024 10:28 AM Age: 49 years old Clinical indication: Other: Hypoxia TECHNIQUE: Imaging protocol: Computed tomographic angiography of the chest with contrast. Exam focused on the arteries. 3D rendering (Not supervised by radiologist): MIP and/or 3D reconstructed images were created by the technologist. Radiation optimization: All CT scans at this facility use at least one of these dose optimization techniques: automated exposure control; mA and/or kV adjustment per patient size (includes targeted exams where dose is matched to clinical indication); or iterative reconstruction. Contrast material: [id number]; Contrast volume: 65 ml; Contrast route: INTRAVENOUS (IV); COMPARISON: CR XR PORTABLE CHEST AP 02/05/2024 9:21 AM FINDINGS: Tubes, catheters and devices: ET tube tip is in the lower thoracic trachea. Enteric suction catheter tip is in the stomach. Pulmonary arteries: No main, lobar or segmental pulmonary arterial embolism. Aorta: Unremarkable. No aortic aneurysm. Lungs: Unremarkable. No consolidation. No masses. Pleural spaces: Unremarkable. No pneumothorax. No pleural effusion. Heart: Unremarkable. No cardiomegaly. No pericardial effusion. Lymph nodes: Unremarkable. No enlarged lymph nodes. Bones/joints: Unremarkable. No acute fracture. Soft tissues: Subcutaneous air in the left anterior chest wall, likely secondary to attempted central venous catheter placement. Other findings: Images are degraded by streak artifact. IMPRESSION: No pulmonary arterial embolism. Dictated and Authenticated by: Tam Vanegas MD. Ordering:BRITTANY Baez MD
--- NOTE | 2024-02-05 11:00 | RT.EKG_ITS ---
APPROVED REPORT Exam: Resting ECG Reason for Exam: dony Patient Location: E HR:49 bpm ECG Measurements Heart Rate 49 AXIS VA 160 P 75 QRSd 86 QRS 73 QT 520 T 60 QTc 470 Conclusion Sinus bradycardia...rate< 60 Anteroseptal infarct, age indeterminate...Q >35mS, T neg, V1-V2 Borderline ST elevation, lateral leads...ST >0.06mV, I aVL V5 V6 Narrow complex normal sinus bradycardi at a rate of 49.a normal axis. Intervals within normal limits . Mild upsloping ST segments left lateral chest wall leads. No acute injury pattern. T wave flatte julisa in aVL. Rate has slowed compared to prior dated earlier today.
--- NOTE | 2024-02-05 11:01 | DI.VRAD_ITS ---
PROCEDURE INFORMATION: Exam: CT Abdomen And Pelvis Without Contrast Exam date and time: 02/05/2024 10:13 AM Age: 49 years old Clinical indication: Other: Persistent drug intox, ? foreign body/packing TECHNIQUE: Imaging protocol: Computed tomography of the abdomen and pelvis without contrast. COMPARISON: CR XR PORTABLE CHEST AP 02/05/2024 9:21 AM FINDINGS: Liver: Normal. No mass. Gallbladder and biliary ducts: Normal. No calcified stones. No ductal dilation. Pancreas: Normal. No ductal dilation. Spleen: Normal. No splenomegaly. Adrenal glands: Normal. No mass. Kidneys and ureters: Normal. No hydronephrosis. Stomach and bowel: There is suggestion of a 5 x 2 cm cylindrical rectal foreign body, filled with air. No bowel wall thickening or obstruction. Appendix: No evidence of appendicitis. Intraperitoneal space: Unremarkable. No free air. No significant fluid collection. Vasculature: Unremarkable. No abdominal aortic aneurysm. Lymph nodes: Unremarkable. No enlarged lymph nodes. Urinary bladder: The urinary bladder is decompressed by a Castillo catheter. There is air in the urinary bladder likely secondary to recent instrumentation. Reproductive: Unremarkable as visualized. Bones/joints: Bilateral L5 pars defects noted. No acute fracture. Soft tissues: Unremarkable. IMPRESSION: Suggestion of a 5 x 2 cm cylindrical rectal foreign body, filled with air. Dictated and Authenticated by: Tam Vanegas MD. Ordering:ARASH Green MD
[2024-02-05] MEDS: Atropine 1 MG/10 ML SYRINGE ×2 (11:46→12:45)
--- NOTE | 2024-02-05 11:49 | SCONE_ITS ---
Date of service: 02/05/24 Time of Service: 11:49 Assessment and Plan Assessment and plan (1) Rectal foreign body: Status: Acute Assessment and plan: I reviewed the CT scan. It does not stand out to me that there is a rectal foreign body, however I am able to appreciate what radiology is describing as suspicious. Overall I would think that is just air within the rectum, but it is pretty symmetrical and rounded when I stop and assess it more closely. Considering the clinical situation of the patient and this finding, I think it is indicated to do a rigid sigmoidoscopy at the bedside to assess the rectum for any possibility of a foreign body. In this case, we are thinking some sort of cask or vessel that would contain or carry drug. I guess possibly infuse drugs as a unique administration route. It is unlikely it would be seen on anoscopy and a digital rectal exam cannot appropriately assess the rectal vault with any definitive certainty. Overall plan: Will get the rigid sigmoidoscope and do a bedside examination. This area of concern on CT scan is definitely within the rectum and below the level of the sigmoid. We should be able to see this area easily and rule it out. And if something is there we can also easily extract it. History of Present Illness Narrative: Called to consult on a 49-year-old man is intubated/sedated because of a possible drug intoxication. There was either a clinical-based or history-based concern or suspicion that he may have been packing drugs. There is a CT done in radiology reported suspicion for rectal foreign body. Digital rectal exam and anoscopy unrevealing - Per ED provider Patient obviously unable to give any history. PFSH All Active Problems (Updated 02/05/24 @ 11:54 by Enrrique Biggs MD) Rectal foreign body (Acute) Acute encephalopathy (Acute) Closed fracture of left proximal humerus (Acute 05/19/23) Left elbow pain (Acute) Social History Smoking/Tobacco Use Status: Current every day Tobacco Type: cigarettes Smoking risk assessment performed?: Yes Drug use: Daily Substance use type: marijuana, crack/cocaine and opiates Current gender identity: male Exam Narrative Exam Narrative: Intubated/sedated Results Last Vital Signs Temp 98.1 F 02/05/24 09:51 Pulse 47 L 02/05/24 11:16 Resp 12 02/05/24 11:16 BP 94/52 L 02/05/24 11:16 Pulse Ox 82 L 02/05/24 11:16 Labs 02/05/24 03:32 02/05/24 07:20 Labs: Laboratory Results - last 24 hr 02/05/24 02/05/24 02/05/24 03:32 03:32 03:32 WBC 17.51 H RBC 5.16 Hgb 14.6 Hct 44.2 MCV 86 MCH 28.3 MCHC 33.0 RDW 12.7 Plt Count 438 H MPV 10.0 Immature Gran % 0.4 Neutrophils % 77.8 Lymphocytes % 12.7 Monocytes % 6.7 Eosinophils % 1.8 Basophils % 0.6 Nucleated RBC % 0.0 Absolute Neutrophils 13.62 H Absolute Lymphocytes 2.22 Absolute Monocytes 1.17 H Absolute Eosinophils 0.32 Absolute Basophils 0.11 PT 11.0 INR 1.1 APTT 29.7 VBG Lactate Sodium 139 Potassium 3.8 Chloride 101 Carbon Dioxide 27.2 Anion Gap 10.8 BUN 8 Creatinine 1.1 Est GFR (CKD-EPI 2020) 83.32 Glucose 129 H Calcium 9.3 Total Bilirubin 0.63 AST 25 ALT 25 Alkaline Phosphatase 27 L Ammonia Creatine Kinase 378 H 390 H Troponin I < 50 < 50 Total Protein 8.4 H Albumin 3.7 TSH Urine Color Urine Clarity Urine pH Ur Specific [place] Urine Protein Urine Ketones Urine Blood Urine Nitrite Urine Bilirubin Urine Urobilinogen Ur Leukocyte Esterase Urine RBC Urine WBC Ur Epithelial Cells Urine Crystals Urine Bacteria Urine Casts Urine Mucus Ur Culture Indicated? Urine Glucose Salicylates Urine Opiates Screen Urine Methadone Screen Acetaminophen Ur Barbiturates Screen Ur Tricyclics Screen Ur Amphetamines Screen U Benzodiazepines Scrn Urine Cocaine Screen Ur THC Screen Ethyl Alcohol < 3.0 02/05/24 02/05/24 02/05/24 07:16 07:19 07:20 WBC RBC Hgb Hct MCV MCH MCHC RDW Plt Count MPV Immature Gran % Neutrophils % Lymphocytes % Monocytes % Eosinophils % Basophils % Nucleated RBC % Absolute Neutrophils Absolute Lymphocytes Absolute Monocytes Absolute Eosinophils Absolute Basophils PT INR APTT VBG Lactate 1.0 Sodium 142 Potassium 3.7 Chloride 109 H Carbon Dioxide 23.6 Anion Gap 9.4 BUN 7 Creatinine 0.9 Est GFR (CKD-EPI 2020) 106.01 Glucose 115 H Calcium 8.5 Total Bilirubin 0.73 AST 23 ALT 20 Alkaline Phosphatase 23 L Ammonia Creatine Kinase 423 H Troponin I Cancelled < 50 Total Protein 7.3 Albumin 3.1 L TSH Cancelled 1.22 Urine Color Urine Clarity Urine pH Ur Specific [place] Urine Protein Urine Ketones Urine Blood Urine Nitrite Urine Bilirubin Urine Urobilinogen Ur Leukocyte Esterase Urine RBC Urine WBC Ur Epithelial Cells Urine Crystals Urine Bacteria Urine Casts Urine Mucus Ur Culture Indicated? Urine Glucose Salicylates Urine Opiates Screen Urine Methadone Screen Acetaminophen Ur Barbiturates Screen Ur Tricyclics Screen Ur Amphetamines Screen U Benzodiazepines Scrn Urine Cocaine Screen Ur THC Screen Ethyl Alcohol 02/05/24 02/05/24 07:30 08:23 WBC RBC Hgb Hct MCV MCH MCHC RDW Plt Count MPV Immature Gran % Neutrophils % Lymphocytes % Monocytes % Eosinophils % Basophils % Nucleated RBC % Absolute Neutrophils Absolute Lymphocytes Absolute Monocytes Absolute Eosinophils Absolute Basophils PT INR APTT VBG Lactate Sodium Potassium Chloride Carbon Dioxide Anion Gap BUN Creatinine Est GFR (CKD-EPI 2020) Glucose Calcium Total Bilirubin AST ALT Alkaline Phosphatase Ammonia 27 Creatine Kinase Troponin I Total Protein Albumin TSH Urine Color Yellow Urine Clarity Clear Urine pH 7.0 Ur Specific [place] 1.015 Urine Protein Negative Urine Ketones Negative Urine Blood Trace-lysed H Urine Nitrite Negative Urine Bilirubin Negative Urine Urobilinogen 0.2 Ur Leukocyte Esterase Negative Urine RBC 0-2 Urine WBC Negative Ur Epithelial Cells Rare Urine Crystals Negative Urine Bacteria Rare Urine Casts Negative Urine Mucus Negative Ur Culture Indicated? No Urine Glucose Negative Salicylates < 2.8 Urine Opiates Screen Negative Urine Methadone Screen Negative Acetaminophen < 2 Ur Barbiturates Screen Negative Ur Tricyclics Screen Negative Ur Amphetamines Screen Negative U Benzodiazepines Scrn Positive A Urine Cocaine Screen Positive A Ur THC Screen Positive A Ethyl Alcohol
[2024-02-05 12:25] LABS: BE (Venous) -2 mmol/L (-2-3); HCO3 (Venous) 24 mmol/L (23-28); O2 Sat (Venous) 92 %; TCO2 (Venous) 22 mmol/L (24-29); pCO2 (Venous) 42 mmHg (41-51); pH (Venous) 7.36 (7.31-7.41); pO2 (Venous) 69 mmHg
--- NOTE | 2024-02-05 13:53 | W.PM.OP ---
Date of service: 02/05/24 Time of Service: 13:00 Operative Note Operative Note Refer to Anesthesia Record Procedure Description: Procedure performed: Bedside rigid sigmoidoscopy Indication for procedure: Emergency indication to rule out/remove possible foreign body in rectum that may be containing a foreign substance/drugs. Emergency consent was signed and witnessed by the emergency room attending, the emergency room nurse and myself. The patient is intubated and sedated and is actually in the custody of law enforcement. Procedure in detail: The consent was emergent. The patient was put in left lateral decubitus position. Digital rectal examination was normal. A well?lubricated rigid sigmoidoscope was then gently advanced posteriorly under direct visualization. Insufflation was performed. The entire rectal vault was carefully examined. I went all the way up into the sigmoid colon at about 15-16 cm from the external anal opening. I then slowly withdrew and did a second, thorough check of the rectal vault. I did not see any foreign body or any foreign material. There was relative paucity of stool which makes me quite confident of the exam overall. I do NOT think that I missed a small foreign body within the small amount of formed stool that was present - but in theory this could be possible. The rectal air from insufflation was then released and the sigmoidoscope was removed. The patient tolerated the procedure well. IMPRESSION: No foreign body in the rectum or distal sigmoid colon
--- NOTE | 2024-02-05 14:52 | W.PM.HP.N ---
Date of service: 02/05/24 Time of Service: 14:52 Assessment and Plan Assessment and plan (1) Acute encephalopathy: Status: Acute Assessment and plan: likely secondary to sympathomimetic toxidrome from substance abuse including cocaine but likely other substances as well. His presentation w/ mydriasis, diaphoresis, hypertension, encephalopathy (biting people, hitting his head, etc) sounds like combo of hallucinogenics and sympathomimetics. His UDS was positive only for cocaine, THC and benzodiazpines and does not fully explain his behavior. We will keep him sedated w/ propofol and benzodiazepines overnight although sedation can be lightened to RASS score of -1 to -2, currently he is a a -4 to -3. Critical care time spent interviewing and examining the patient, reviewing studies, discussing case with patient's nurse and consulting physicians was 60 minutes (2) Cocaine abuse: Status: Acute Assessment and plan: continue benzodiazepines and propofol sedation overnight, will attempt sedation vacation in the morning and if not severely agitated probably be able to extubate him. (3) Rectal foreign body: Status: Suspected Assessment and plan: suspected d/t cocaine toxicity and abnormal CT abdomen and pelvis however, Dr. Biggs performed bedside flex sig exam while patient was in the E.D. and no foreign body was found. Qualifiers: Encounter type: initial encounter Qualified Code(s): T18.5XXA - Foreign body in anus and rectum, initial encounter (4) Endotracheally intubated: Status: Acute Assessment and plan: patient was intubated to protect his airway d/t the high amount of sedatives given in the E.D. (Versed 65 mg, valium 30 mg and lorazepam 3 mg and dexmedetomidine). Patient will remain sedated and intubated overnight and will plan to stop sedation early tomorrow morning and extubate if hemodynamically stable. (5) On mechanically assisted ventilation: Status: Acute Assessment and plan: currently on assist control TV 400 mL, PEEP 5 cm, RR 12 and FIO2 25% w/ good SPO2 of 98%, last VBG showed acceptable pH and pCO2. History of Present Illness History of Present Illness Chief Complaint: acute agitation Narrative: Note information obtained from my discussion w/ Dr. Melton and review of the chart, patient was sedated and intubated unable to contribute to my interaction w/ the patient. 49 yr old male w/ PMH of opioid use disorder w/ regular use of fentanyl and crack/cocaine who was in police custody and brought to [facility] E.Trevon. @ 03:28 am reportedly withdrawing from fentanyl and cocaine abuse. Last use reportedly in the evneing of 02/03. Patient reported symptoms of feeling shaking, having visible tremors, having hallucinations seeing weird stuff but no homicideal ideation or suicidal ideation. No chest pain/pressure or dyspnea. he reports falling in the shower the day prior to admission. No associated fever, chills, rash, nausea or vomiting or abdominal pain, numbness or tingling. Patient denied any body packing of cocaine or other drugs. He began shakiing last night and his officers reported increased agitation. He was hypertensive w/ bp 170's/130's on arrival and tachycardic at 95 to 100 and tachypneic at 26 bpm but afebrile and w/ normal SPO2 98% on room air. Patient had non-focal neurologic exam on admission but was becoming more agitated, attempted to bite staff and the [employer] and was diaphoretic and w/ mydriasis. EKG on arrival w/ NSR no ST-T abnormalities. patient was given progressively increasing doses of versed up to total of 65 mg after demonstrating severe aggressive agitation including attempting to bite staff and IDANIA's. He was begun on precedex drip and eventuallly had to be intubated by Dr. Melton who took over his care from Dr. Lobato. CT head showed not acute abnormality. Patient was then sent to CT for abdominal and pelvic CT scan to look for body packing of cocaine. While in the CT scanner a CODE BLUE was called as he had sudden onset of hypoxemia associated w/ progressive bradycardia. He had become bradycardic before this event after he had been on Precedex. Patient was taken off the ventilator (he was having high airway pressures in the 40's) and was ventilated w/ ambu bag valve ET and was easily ventilated. Precedex was stopped and HR came up from the 40's into the high 50s and his oxygen saturation came up from 70's to high 90's. He was then put back on ventilator on PCV mode and CT chest was done to rule out PTX and PE. No PE or PTX was seen and no consolidations were seen in his lungs. However the abdominal/pelvic CT suggested a cylindrical 5 x 2 cm foreign body in the rectal area filled w/ air. Dr. Aric Biggs, general surgery was called to performe sigmoidoscopy to evaluate for foreign body in the rectum and none was found. The hospitalist service was asked to admit the patient to ICU for management of cocaine toxicity and mechanical ventilation d/t unprotected airway d/t need for high dose propofol and benzodiazepines. Patient has required norepinephrine in order to prevent hypotension from his propofol. Review of Systems Unobtainable due to endotracheal tube PFSH All Active Problems (Updated 02/05/24 @ 17:29 by Lanre López MD) On mechanically assisted ventilation (Acute) Endotracheally intubated (Acute) Cocaine abuse (Acute) Acute encephalopathy (Acute) Closed fracture of left proximal humerus (Acute 05/19/23) Left elbow pain (Acute) Social History Smoking/Tobacco Use Status: Current every day Tobacco Type: cigarettes Smoking risk assessment performed?: Yes Drug use: Daily Substance use type: marijuana, crack/cocaine and opiates Current gender identity: male Meds Allergies and Home Medications Allergies Allergy/AdvReac Type Severity Reaction Status Date / Time No Known Allergies Allergy Unverified 05/26/23 09:11 Home Medications Medication Instructions Recorded Confirmed Type Unknown [No Known Home Meds] 05/26/23 02/05/24 History Exam Narrative Exam Narrative: Middle-age white male who is intubated sedated with endotracheal tube who is edentulous with male pattern balding, no periorbital ecchymosis No oral exudates as far as I could see around his ET and OG tubes No perioral lacterations pupils pinpoint but reactive to direct light, no nystagmus Neck: supple, no adenopathy, normal carotid pulses Lungs: clear Heart: RRR, no murmur, rub or gallop Abdomen: nondistended, soft, normal bowel sounds, scar over suprapubic area (looks like old suprapubic catheter site) Extremities: muliple tatoos RUE (also left anterior chest), no edema, normal pulses, no open sores over either his UE nor over his LE Neuro: GCS 6 (e1, v1, m4), patient is very sedated on propofol drip at 70 mg/kg/minute, patient will flinch/withdraw to painful stimulation but no spontaneous eye opening nor even w/ painful stimulation, no muscle tremors or fasciculations Results Imaging CT scan - chest: report reviewed Imaging Studies: CT chest: FINDINGS: Tracheobronchial tree: The tip of the endotracheal tube is 2.2 cm above the grant. Pulmonary parenchyma: Linear atelectasis is seen in the lung bases. No architectural distortion. Pulmonary Arteries: No evidence of filling defect to suggest pulmonary emboli. Mediastinum and Cami: No dominant adenopathy or fluid collection. The esophagus is unremarkable. The enteric tube passes into the stomach in good position. Visualized thyroid gland: Unremarkable. Pleura: No effusion or pneumothorax. Heart: The heart is not dilated. Mild coronary artery calcification is present. No pericardial effusion. Aorta: Thoracic aorta non-dilated. No evidence of dissection. Atherosclerotic calcification is present. Tubes, Catheters, and Lines: The tip of the enteric tube is seen in good position in the stomach. The tip of the endotracheal tube is 2.2 cm above the grant. Soft tissues: Unremarkable. Bones: Within normal limits for the patient's age.There is an old fracture deformity of the sternum. IMPRESSION: No evidence of pulmonary embolism, thoracic aortic dissection or aneurysm. CT abdomen and pelvis: FINDINGS: Liver: Normal. No mass. Gallbladder and biliary ducts: Normal. No calcified stones. No ductal dilation. Pancreas: Normal. No ductal dilation. Spleen: Normal. No splenomegaly. Adrenal glands: Normal. No mass. Kidneys and ureters: Normal. No hydronephrosis. Stomach and bowel: There is suggestion of a 5 x 2 cm cylindrical rectal foreign body, filled with air. No bowel wall thickening or obstruction. Appendix: No evidence of appendicitis. Intraperitoneal space: Unremarkable. No free air. No significant fluid collection. Vasculature: Unremarkable. No abdominal aortic aneurysm. Lymph nodes: Unremarkable. No enlarged lymph nodes. Urinary bladder: The urinary bladder is decompressed by a Castillo catheter. There is air in the urinary bladder likely secondary to recent instrumentation. Reproductive: Unremarkable as visualized. Bones/joints: Bilateral L5 pars defects noted. No acute fracture. Soft tissues: Unremarkable. IMPRESSION: Suggestion of a 5 x 2 cm cylindrical rectal foreign body, filled with air. Dictated and Authenticated by: Tam Vanegas MD. Labs 02/05/24 03:32 02/05/24 07:20 Labs: Laboratory Results - last 24 hr 02/05/24 02/05/24 02/05/24 03:32 03:32 03:32 WBC 17.51 H RBC 5.16 Hgb 14.6 Hct 44.2 MCV 86 MCH 28.3 MCHC 33.0 RDW 12.7 Plt Count 438 H MPV 10.0 Immature Gran % 0.4 Neutrophils % 77.8 Lymphocytes % 12.7 Monocytes % 6.7 Eosinophils % 1.8 Basophils % 0.6 Nucleated RBC % 0.0 Absolute Neutrophils 13.62 H Absolute Lymphocytes 2.22 Absolute Monocytes 1.17 H Absolute Eosinophils 0.32 Absolute Basophils 0.11 PT 11.0 INR 1.1 APTT 29.7 VBG pH VBG pCO2 VBG pO2 VBG HCO3 VBG Total CO2 VBG O2 Saturation VBG Base Excess VBG Lactate Sodium 139 Potassium 3.8 Chloride 101 Carbon Dioxide 27.2 Anion Gap 10.8 BUN 8 Creatinine 1.1 Est GFR (CKD-EPI 2020) 83.32 Glucose 129 H Calcium 9.3 Total Bilirubin 0.63 AST 25 ALT 25 Alkaline Phosphatase 27 L Ammonia Creatine Kinase 378 H 390 H Troponin I < 50 < 50 Total Protein 8.4 H Albumin 3.7 TSH Urine Color Urine Clarity Urine pH Ur Specific [place] Urine Protein Urine Ketones Urine Blood Urine Nitrite Urine Bilirubin Urine Urobilinogen Ur Leukocyte Esterase Urine RBC Urine WBC Ur Epithelial Cells Urine Crystals Urine Bacteria Urine Casts Urine Mucus Ur Culture Indicated? Urine Glucose Salicylates Urine Opiates Screen Urine Methadone Screen Acetaminophen Ur Barbiturates Screen Ur Tricyclics Screen Ur Amphetamines Screen U Benzodiazepines Scrn Urine Cocaine Screen Ur THC Screen Ethyl Alcohol < 3.0 02/05/24 02/05/24 02/05/24 07:16 07:19 07:20 WBC RBC Hgb Hct MCV MCH MCHC RDW Plt Count MPV Immature Gran % Neutrophils % Lymphocytes % Monocytes % Eosinophils % Basophils % Nucleated RBC % Absolute Neutrophils Absolute Lymphocytes Absolute Monocytes Absolute Eosinophils Absolute Basophils PT INR APTT VBG pH VBG pCO2 VBG pO2 VBG HCO3 VBG Total CO2 VBG O2 Saturation VBG Base Excess VBG Lactate 1.0 Sodium 142 Potassium 3.7 Chloride 109 H Carbon Dioxide 23.6 Anion Gap 9.4 BUN 7 Creatinine 0.9 Est GFR (CKD-EPI 2020) 106.01 Glucose 115 H Calcium 8.5 Total Bilirubin 0.73 AST 23 ALT 20 Alkaline Phosphatase 23 L Ammonia Creatine Kinase 423 H Troponin I Cancelled < 50 Total Protein 7.3 Albumin 3.1 L TSH Cancelled 1.22 Urine Color Urine Clarity Urine pH Ur Specific [place] Urine Protein Urine Ketones Urine Blood Urine Nitrite Urine Bilirubin Urine Urobilinogen Ur Leukocyte Esterase Urine RBC Urine WBC Ur Epithelial Cells Urine Crystals Urine Bacteria Urine Casts Urine Mucus Ur Culture Indicated? Urine Glucose Salicylates Urine Opiates Screen Urine Methadone Screen Acetaminophen Ur Barbiturates Screen Ur Tricyclics Screen Ur Amphetamines Screen U Benzodiazepines Scrn Urine Cocaine Screen Ur THC Screen Ethyl Alcohol 02/05/24 02/05/24 02/05/24 07:30 08:23 12:13 WBC RBC Hgb Hct MCV MCH MCHC RDW Plt Count MPV Immature Gran % Neutrophils % Lymphocytes % Monocytes % Eosinophils % Basophils % Nucleated RBC % Absolute Neutrophils Absolute Lymphocytes Absolute Monocytes Absolute Eosinophils Absolute Basophils PT INR APTT VBG pH 7.36 VBG pCO2 42 VBG pO2 69 VBG HCO3 24 VBG Total CO2 22 L VBG O2 Saturation 92 VBG Base Excess -2 VBG Lactate Sodium Potassium Chloride Carbon Dioxide Anion Gap BUN Creatinine Est GFR (CKD-EPI 2020) Glucose Calcium Total Bilirubin AST ALT Alkaline Phosphatase Ammonia 27 Creatine Kinase Troponin I Total Protein Albumin TSH Urine Color Yellow Urine Clarity Clear Urine pH 7.0 Ur Specific [place] 1.015 Urine Protein Negative Urine Ketones Negative Urine Blood Trace-lysed H Urine Nitrite Negative Urine Bilirubin Negative Urine Urobilinogen 0.2 Ur Leukocyte Esterase Negative Urine RBC 0-2 Urine WBC Negative Ur Epithelial Cells Rare Urine Crystals Negative Urine Bacteria Rare Urine Casts Negative Urine Mucus Negative Ur Culture Indicated? No Urine Glucose Negative Salicylates < 2.8 Urine Opiates Screen Negative Urine Methadone Screen Negative Acetaminophen < 2 Ur Barbiturates Screen Negative Ur Tricyclics Screen Negative Ur Amphetamines Screen Negative U Benzodiazepines Scrn Positive A Urine Cocaine Screen Positive A Ur THC Screen Positive A Ethyl Alcohol Last Vital Signs Temp 35.3 C L 02/05/24 13:56 Pulse 49 L 02/05/24 13:56 Resp 12 02/05/24 14:31 BP 120/78 02/05/24 14:31 Pulse Ox 96 02/05/24 14:31 Time Spent Time spent with Patient: 55-74 minutes Time was spent: preparing to see the patient(eg.review tests), ordering medications,tests, procedures, referring, communicating with other health careers counsellor, indepentently interpreting results and care coordination
--- NOTE | 2024-02-05 16:48 | W.EDRSTF2F ---
Date of service: 02/05/24 Time of Service: 16:53 Restraint Face to Face Time of Face to Face 3rd Face to Face: Time of Face to Face: 11:00 Patient's Immediate Situation Requiring Restraints/Seclusion: Harm to Patient Patient Response to Restraints: Tolerating without Problems Need for Continuation of Restraints Has Been Assessed: Restraints Continued 4th Face to Face: Time of Face to Face: 12:00 Patient's Immediate Situation Requiring Restraints/Seclusion: Harm to Patient Patient Response to Restraints: Tolerating without Problems Need for Continuation of Restraints Has Been Assessed: Restraints Continued 5th Face to Face: Time of Face to Face: 13:00 Patient Response to Restraints: Tolerating without Problems Need for Continuation of Restraints Has Been Assessed: Restraints Continued 6th Face to Face: Time of Face to Face: 14:00 Patient's Immediate Situation Requiring Restraints/Seclusion: Harm to Patient Patient Response to Restraints: Tolerating without Problems Need for Continuation of Restraints Has Been Assessed: Restraints Continued 7th Face to Face: Time of Face to Face: 15:00 Patient's Immediate Situation Requiring Restraints/Seclusion: Harm to Patient Patient Response to Restraints: Tolerating without Problems Need for Continuation of Restraints Has Been Assessed: Restraints Continued
[2024-02-05] MEDS: Lactated Ringers 1,000 ML 100 ML IV (18:03)
[2024-02-05] MEDS: Pantoprazole 40 MG VIAL IVP (18:11)
[2024-02-05 18:47] LABS: Creatine Kinase 124 U/L (39-308)
[2024-02-05] MEDS: PROPOFOL 1,000 MG/100 ML BTL 25.788 MG IVPB ×2 (19:45→23:08)
[2024-02-05] MEDS: fentaNYL 100 MCG/2 ML VIAL IVP ×2 (19:49→21:46)
[2024-02-05] MEDS: Enoxaparin 40 MG/0.4 ML SYR SC (20:39)
[2024-02-05] MEDS: Normal Saline Flush 10 ML SYR (20:52)
[2024-02-06] VITALS (141 sets, daily range): BP systolic 122–201; BP diastolic 78–167; PULSE 46–86; RESP 12–39; TEMP 36.5–38.4; O2SAT 93–100
[2024-02-06] MEDS: Normal Saline Flush 10 ML SYR IVP ×2 (00:48→20:29)
[2024-02-06] MEDS: fentaNYL 100 MCG/2 ML VIAL IVP ×5 (00:48→21:11)
[2024-02-06] MEDS: PROPOFOL 1,000 MG/100 ML BTL 25.788 MG IVPB (02:23)
[2024-02-06] MEDS: Lactated Ringers 1,000 ML 100 ML IV (02:29)
[2024-02-06 05:38] LABS: BE (Venous) 2 mmol/L (-2-3); HCO3 (Venous) 27 mmol/L (23-28); O2 Sat (Venous) 77 %; TCO2 (Venous) 24 mmol/L (24-29); pCO2 (Venous) 42 mmHg (41-51); pO2 (Venous) 43 mmHg
[2024-02-06 05:42] LABS: Abs Immature Grans 0.03 10^3/uL (0.0-0.06); Absolute Basophil Count 0.08 10^3/uL (0.0-0.2); Absolute Eosinophil Count 0.37 10^3/uL (0.0-0.7); Absolute Lymphocyte Count 1.47 10^3/uL (1.2-3.4); Absolute Monocyte Count 0.91 10^3/uL (0.1-0.8); Absolute Neutrophil Count 8.26 10^3/uL (1.2-6.7); Basophils % 0.7 %; Eosinophils % 3.3 %; HCT 40.5 % (40.0-50.0); HGB 12.9 g/dL (13.5-17.5); Immature Grans % 0.3 %; Lymphocytes % 13.2 %; MCHC 31.9 % (32.0-36.0); MCV 88 fL (80-95); MPV 9.9 fL (8.0-11.0); Monocytes % 8.2 %; Neutrophils % 74.3 %; Platelet Count 315 10^3/uL (130-400); RDW 13.1 % (11.8-14.1); RDW-SD 42.4 fL; WBC 11.12 10^3/uL (4.4-10.8)
[2024-02-06 05:57] LABS: ALT 18 U/L (16-63); AST 17 U/L (15-37); Albumin 2.7 g/dL (3.4-5.0); Alkaline Phosphatase 17 U/L (46-116); Anion Gap 9.1 mmol/L (3-11); BUN 5 mg/dL (7-18); Bilirubin, Total 0.38 mg/dL (0.2-1.0); CO2 27.9 mmol/L (21.0-32.0); CREATININE 0.8 mg/dL (0.70-1.30); Calcium 8.7 mg/dL (8.5-10.1); Chloride 108 mmol/L (98-107); Estimated GFR 109.85 (mL/min/1.73m2); Glucose 87 mg/dL (74-106); Potassium 3.6 mmol/L (3.5-5.1); Sodium 145 mmol/L (136-145); Total Protein 6.8 g/dL (6.4-8.2)
--- NOTE | 2024-02-06 06:13 | DI.RAD_ITS ---
Exam(s) XR PORTABLE CHEST AP EXAM: XR PORTABLE CHEST AP CLINICAL HISTORY: resp. failure TECHNIQUE: 2D digital imaging was performed of the chest. One image was obtained. An AP view was ob tained. COMPARISON: CR,XR XR PORTABLE CHEST AP from 02/05/2024 FINDINGS: MEDIASTINUM: Normal. HEART: Normal. PULMONARY VASCULATURE: Normal. LUNGS: Clear. PLEURAL SPACE: No pleural effusion or pneumothorax. BONE:Within normal limits for the patient's age. OTHER FINDINGS:The distal tip of the endotracheal tube is 3 cm above the grant. The enteric tube moya s been advanced with its tip seen in the stomach. IMPRESSION: No acute pulmonary findings. DATA REPOSITORY: RADIATION DOSE DELIVERED:
[2024-02-06] MEDS: PROPOFOL 1,000 MG/100 ML BTL 22.104 MG IVPB (06:28)
--- NOTE | 2024-02-06 06:35 | DI.VRAD_ITS ---
PROCEDURE INFORMATION: Exam: XR Chest Exam date and time: 02/06/2024 6:04 AM Age: 49 years old Clinical indication: Other: Resp. Failure TECHNIQUE: Imaging protocol: Radiologic exam of the chest. Views: 1 view. COMPARISON: No relevant prior studies are available for comparison. FINDINGS: Tubes, catheters and devices: Endotracheal tube terminates approximately 2 cm above the grant. Nasogastric tube terminates in the expected location of the stomach. Lungs: No focal consolidation seen. Pleural spaces: No large pleural effusion seen. Heart/Mediastinum: No cardiomegaly. Bones/joints: Grossly unremarkable. IMPRESSION: Tubes and lines as above. Dictated and Authenticated by: Gemini Munoz MD. Ordering:[facility] Rene De Dios MD
--- NOTE | 2024-02-06 08:25 | PGE_ITS ---
Date of Service Date of service: 02/06/24 Time of Service: 08:27 Assessment and Plan Assessment and plan (1) Acute encephalopathy: Status: Acute Assessment and plan: secondary to sympathomimetic toxidrome (cocaine and possible others), also likely some component of opioid withdrawal continue protection of his airway w/ intubation and mechanical ventilation; currently doing well from respiratory standpoint in maintaining oxygentation w/ little FIO2 (25%) and PEEP (5 cm), currently on AC w/ TV 400 mL and is PIP is 15 cm continue sedation w/ propofol and add iv fentanyl for adjunct sedation and treat opioid withdrawal; also have added clonidine Critical care time spent interviewing and examining the patient, reviewing studies, discussing case with patient's nurse and consulting physicians was 45 minutes (2) Cocaine abuse: Status: Acute Assessment and plan: as above (3) Rectal foreign body: Status: Suspected Qualifiers: Encounter type: initial encounter Qualified Code(s): T18.5XXA - Foreign body in anus and rectum, initial encounter (4) Endotracheally intubated: Status: Acute (5) On mechanically assisted ventilation: Status: Acute (6) Elevated CK: Status: Resolved Assessment and plan: 378 > 423 > 124 so he did not have rhabdomyolysis but CK release probably related to his intense tremors and thrashing about while in the ED. (7) Hematemesis: Status: Acute Assessment and plan: patient with some blood NG drainage; ddx: PUD, varices, NG trauma; will monitor hemoglobin, double up his protonix and add carafate to his NG. If hemoglobin drops further (14.6 gm > 12.9 gm) then may need surgical consult for EGD but for now will treat as if stress gastritis/ulcer and use PPI w/ carafate, monitor hemoglobin dc enoxaparin for DVT prophylaxis (use SCD) Qualifiers: Nausea presence: unspecified Qualified Code(s): K92.0 - Hematemesis (8) Discharge planning issues: Status: Acute Assessment and plan: will return to detention once he is hemodynamically stable and extubated. Subjective Subjective Interval history since last seen: Nursing turned off his propofol drip this morning and although he became hypertensive and had increased respirations and increased respiratory secretions and became tachycardic and diaphoretic (all signs of acute narcotic withdrawal), he was not becoming responsive to commands and was not alert enough to consider extubation. I decided we should continue sedation w/ propofol and add fentanyl drip (although he has prn orders for fentanyl) to try to control the acute narcotic withdrawal. Also since he is no longer bradycardic and has been hypertensiive, will add clonidine to his regimen. His NG is now showing blood secretions. I have increased his protonix dosing and will add carafate slurry down his NG. Exam Narrative Exam Narrative: Middle age white male, intubated, he is not opening his eyes to verbal nor to noxious stimulation although he localizes to pain and withdraws; he has cough and per nursing is bringing up some thick sputum. culture and gram stain has been sent. he remain afebrile, T max 37.7 Lungs: some coarse breath sounds both bases that cleared after he had a paroxysm of coughing Heart: RRR, no murmur Abdomen: non distended, soft, normal bowel sounds Extremities: no edema or sores Neuro: sedated, localizes to pain, withdraws extremities to noxious stimulation but no spontaneous eye opening. Objective Last Vital Signs Temp 37.7 C H 02/06/24 08:10 Pulse 63 02/06/24 08:06 Resp 14 02/06/24 08:21 BP 160/95 H 02/06/24 08:06 Pulse Ox 97 02/06/24 08:21 Laboratory Results - last 24 hr 02/05/24 02/05/24 02/05/24 08:23 12:13 17:35 WBC RBC Hgb Hct MCV MCH MCHC RDW Plt Count MPV Immature Gran % Neutrophils % Lymphocytes % Monocytes % Eosinophils % Basophils % Nucleated RBC % Absolute Neutrophils Absolute Lymphocytes Absolute Monocytes Absolute Eosinophils Absolute Basophils VBG pH 7.36 VBG pCO2 42 VBG pO2 69 VBG HCO3 24 VBG Total CO2 22 L VBG O2 Saturation 92 VBG Base Excess -2 VBG Lactate Cancelled Sodium Potassium Chloride Carbon Dioxide Anion Gap BUN Creatinine Est GFR (CKD-EPI 2020) Glucose Calcium Total Bilirubin AST ALT Alkaline Phosphatase Creatine Kinase 124 Total Protein Albumin Urine Color Yellow Urine Clarity Clear Urine pH 7.0 Ur Specific [place] 1.015 Urine Protein Negative Urine Ketones Negative Urine Blood Trace-lysed H Urine Nitrite Negative Urine Bilirubin Negative Urine Urobilinogen 0.2 Ur Leukocyte Esterase Negative Urine RBC 0-2 Urine WBC Negative Ur Epithelial Cells Rare Urine Crystals Negative Urine Bacteria Rare Urine Casts Negative Urine Mucus Negative Ur Culture Indicated? No Urine Glucose Negative Urine Opiates Screen Negative Urine Methadone Screen Negative Ur Barbiturates Screen Negative Ur Tricyclics Screen Negative Ur Amphetamines Screen Negative U Benzodiazepines Scrn Positive A Urine Cocaine Screen Positive A Ur THC Screen Positive A 02/05/24 02/06/24 18:18 05:30 WBC 11.12 H RBC 4.60 Hgb 12.9 L Hct 40.5 MCV 88 MCH 28.0 MCHC 31.9 L RDW 13.1 Plt Count 315 MPV 9.9 Immature Gran % 0.3 Neutrophils % 74.3 Lymphocytes % 13.2 Monocytes % 8.2 Eosinophils % 3.3 Basophils % 0.7 Nucleated RBC % 0.0 Absolute Neutrophils 8.26 H Absolute Lymphocytes 1.47 Absolute Monocytes 0.91 H Absolute Eosinophils 0.37 Absolute Basophils 0.08 VBG pH 7.40 VBG pCO2 42 VBG pO2 43 VBG HCO3 27 VBG Total CO2 24 VBG O2 Saturation 77 VBG Base Excess 2 VBG Lactate 2.0 H Sodium 145 Potassium 3.6 Chloride 108 H Carbon Dioxide 27.9 Anion Gap 9.1 BUN 5 L Creatinine 0.8 Est GFR (CKD-EPI 2020) 109.85 Glucose 87 Calcium 8.7 Total Bilirubin 0.38 AST 17 ALT 18 Alkaline Phosphatase 17 L Creatine Kinase Total Protein 6.8 Albumin 2.7 L Urine Color Urine Clarity Urine pH Ur Specific [place] Urine Protein Urine Ketones Urine Blood Urine Nitrite Urine Bilirubin Urine Urobilinogen Ur Leukocyte Esterase Urine RBC Urine WBC Ur Epithelial Cells Urine Crystals Urine Bacteria Urine Casts Urine Mucus Ur Culture Indicated? Urine Glucose Urine Opiates Screen Urine Methadone Screen Ur Barbiturates Screen Ur Tricyclics Screen Ur Amphetamines Screen U Benzodiazepines Scrn Urine Cocaine Screen Ur THC Screen Time Spent with Patient Time Spent with Patient: 35-49 minutes Time was spent: preparing to see the patient(eg.review tests), ordering medications,tests, procedures, referring, communicating with other health child care lead teacher (ICU nurses, case management), indepentently interpreting results, counseling the patient and care coordination
--- NOTE | 2024-02-06 08:34 | PDOC.CMIN ---
Date of service: 02/06/24 Time of Service: 08:34 Care Management Initial Assmt Initial Assessment Reason for Hospitalization: encephalopathy Functional Status/Living Situation Patient Presentation: Giovanni was intubated and sedated when CM visited. No personal information was available. Town of Residence: [facility] (currently incarcerated) Resides with: Other (alf) Medications Medication Management: No Issues/Barriers identified Advance Directives Advance Directives: Do you have an Advance Directive: N 05/19/23 02:08 AD On File at [facility]: Date Asked 02/06/24 02/06/24 11:36 AD Date Reviewed COLST On File at [facility] COLST Date Scanned Code Status Resuscitation Status Full Code Portal Pt does not currently have a portal and education provided: No Insurance Coverage/Financial Issues Insurance: [facility] ACO Member: No Care Team Visit Care Team Role Provider Type Unknown Unknown Primary Care Provider STAFF PHYSICIAN Nestor Melton MD Emergency Provider [facility] STAFF PHYSICIAN Lanre López MD Admit Provider [facility] STAFF PHYSICIAN Attending Provider Discharge Anticipated Barriers to Discharge: None Identified Patient/Family Education Needs: Review discharge instructions, discuss Ask Me Three Transportation: Other (with corrections officers) Plan: Giovanni is currently intubated and sedated in the ICU. Anticipate when he is medically cleared he will return to the correctional facility. He will follow up with their providers and transport with corrections officers. CM will follow. PFSH All Active Problems (Updated 02/06/24 @ 08:54 by Lanre López MD) Discharge planning issues (Acute) Hematemesis (Acute) On mechanically assisted ventilation (Acute) Endotracheally intubated (Acute) Cocaine abuse (Acute) Acute encephalopathy (Acute) Closed fracture of left proximal humerus (Acute 05/19/23) Left elbow pain (Acute) Social History Smoking/Tobacco Use Status: Current every day Tobacco Type: cigarettes Smoking risk assessment performed?: Yes Drug use: Daily Substance use type: marijuana, crack/cocaine and opiates Current gender identity: male SDOH(Care Management) Screening Will the Patient Participate in the Screening?: Unable to obtain
[2024-02-06] MEDS: fentaNYL 1,000 MCG in Normal Saline 80 ML 6.14 MCG IV ×2 (08:35→17:22)
[2024-02-06 08:50] LABS: Lab Add On Test DONE
[2024-02-06 09:03] LABS: Magnesium 1.8 mg/dL (1.8-2.4)
[2024-02-06] MEDS: POTASSIUM CHLORIDE 20 MEQ/100 ML BAG 50 MEQ IVINF (09:12)
[2024-02-06] MEDS: Sucralfate 1 GM TAB NG ×3 (09:12→20:41)
[2024-02-06] MEDS: Pantoprazole 40 MG VIAL 80 MG IVP (09:13)
[2024-02-06] MEDS: cloNIDine 0.1 MG PATCH TD (10:01)
[2024-02-06] MEDS: PROPOFOL 1,000 MG/100 ML BTL 20.262 MG IV ×2 (11:19→15:55)
[2024-02-06 11:22] LABS: HCT 41.7 % (40.0-50.0); HGB 13.8 g/dL (13.5-17.5)
[2024-02-06] MEDS: Lactated Ringers 1,000 ML 50 ML IV (17:13)
[2024-02-06 18:37] LABS: HGB 13.7 g/dL (13.5-17.5)
[2024-02-06] MEDS: Pantoprazole 40 MG VIAL IVP (20:41)
[2024-02-06] MEDS: PROPOFOL 1,000 MG/100 ML BTL 25.788 MG IV (21:39)
[2024-02-07] VITALS (38 sets, daily range): BP systolic 115–194; BP diastolic 72–106; PULSE 49–97; RESP 12–28; TEMP 36.2–38.7; O2SAT 94–100
[2024-02-07] MEDS: PROPOFOL 1,000 MG/100 ML BTL 23.946 MG IV (01:11)
[2024-02-07] MEDS: fentaNYL 1,000 MCG in Normal Saline 80 ML 12.28 MCG IV (01:34)
[2024-02-07] MEDS: Sucralfate 1 GM TAB NG ×2 (02:21→13:51)
[2024-02-07 04:10] LABS: Abs Immature Grans 0.04 10^3/uL (0.0-0.06); Absolute Basophil Count 0.09 10^3/uL (0.0-0.2); Absolute Eosinophil Count 0.42 10^3/uL (0.0-0.7); Absolute Lymphocyte Count 2.16 10^3/uL (1.2-3.4); Absolute Monocyte Count 0.69 10^3/uL (0.1-0.8); Absolute Neutrophil Count 7.06 10^3/uL (1.2-6.7); Basophils % 0.9 %; HCT 40.2 % (40.0-50.0); HGB 12.8 g/dL (13.5-17.5); Immature Grans % 0.4 %; Lymphocytes % 20.7 %; MCH 28.2 pg (27.0-33.0); MCHC 31.8 % (32.0-36.0); MCV 89 fL (80-95); MPV 9.9 fL (8.0-11.0); Monocytes % 6.6 %; Neutrophils % 67.4 %; Platelet Count 314 10^3/uL (130-400); RBC 4.54 10^6/uL (4.36-5.78); RDW 12.9 % (11.8-14.1); RDW-SD 42.1 fL; WBC 10.46 10^3/uL (4.4-10.8)
[2024-02-07 04:42] LABS: ALT 16 U/L (16-63); AST 17 U/L (15-37); Albumin 2.6 g/dL (3.4-5.0); Alkaline Phosphatase 20 U/L (46-116); Anion Gap 8.7 mmol/L (3-11); BUN 5 mg/dL (7-18); Bilirubin, Total 0.44 mg/dL (0.2-1.0); CO2 28.3 mmol/L (21.0-32.0); CREATININE 0.8 mg/dL (0.70-1.30); Calcium 8.6 mg/dL (8.5-10.1); Chloride 106 mmol/L (98-107); Estimated GFR 109.85 (mL/min/1.73m2); Glucose 72 mg/dL (74-106); Magnesium 1.8 mg/dL (1.8-2.4); Potassium 3.4 mmol/L (3.5-5.1); Sodium 143 mmol/L (136-145); Total Protein 6.6 g/dL (6.4-8.2)
[2024-02-07 04:53] LABS: BE (Venous) 0 mmol/L (-2-3); HCO3 (Venous) 25 mmol/L (23-28); TCO2 (Venous) 27 mmol/L (24-29); pCO2 (Venous) 45 mmHg (41-51); pH (Venous) 7.36 (7.31-7.41); pO2 (Venous) 64 mmHg
[2024-02-07 04:54] LABS: O2 Sat (Venous) 91 %
[2024-02-07 04:59] LABS: Procalcitonin < 0.1 ng/mL
[2024-02-07] MEDS: Normal Saline Flush 10 ML SYR IVP ×2 (05:05→13:55)
[2024-02-07] MEDS: Pantoprazole 40 MG VIAL IVP (08:06)
--- NOTE | 2024-02-07 09:11 | W.PM.PROGNOT ---
Date of Service Date of service: 02/07/24 Time of Service: 09:11 Assessment and Plan Assessment and plan (1) Acute encephalopathy: Status: Acute Assessment and plan: -secondary to sympathomimetic toxidrome (cocaine and possible others), also likely some component of opioid withdrawal -had been intubated on minimal settings; FIO2 (25%) and PEEP (5 cm), currently on AC w/ TV 400 mL and is PIP is 15 cm -patient was successfully extubated early AM 02/07/2024 -currently requiring 1L NC, wean O2 as tolerated -currently protecting his airway, but he remains significantly confused at this time, likely due to either ongoing effects of polysubstance use and/or withdrawal -patient had elevated COWS score in the mid teens this morning, started on burprenorphine 8mg SL TID, continue to monitor for withdrawal symptoms (2) Cocaine abuse: Status: Acute Assessment and plan: as above (3) Rectal foreign body: Status: Suspected Qualifiers: Encounter type: initial encounter Qualified Code(s): T18.5XXA - Foreign body in anus and rectum, initial encounter (4) Endotracheally intubated: Status: Acute Assessment and plan: -extubated as noted above (5) Elevated CK: Status: Resolved Assessment and plan: -378 > 423 > 124 so he did not have rhabdomyolysis but CK release probably related to his intense tremors and thrashing about while in the ED. (6) Hematemesis: Status: Acute Assessment and plan: -patient with some blood NG drainage; ddx: PUD, varices, NG trauma; will monitor hemoglobin, double up his protonix and add carafate to his NG. -If hemoglobin drops further (14.6 gm > 12.9 gm) then may need surgical consult for EGD but for now will treat as if stress gastritis/ulcer and use PPI w/ carafate, monitor hemoglobin dc enoxaparin for DVT prophylaxis (use SCD) Qualifiers: Nausea presence: unspecified Qualified Code(s): K92.0 - Hematemesis (7) Discharge planning issues: Status: Acute Assessment and plan: -will return to residential once he is hemodynamically stable and extubated. Subjective Subjective Interval history since last seen: Patient awake, but remains confused and is unable to participate in conversation. He does not appear to be in any acute distress at this time. Exam Narrative Exam Narrative: Chronically ill-appearing gentleman, appears much older than stated age, does not appear to be in any acute distress, awake, alert, but not responding to questions appropriately, heart regular rhythm, lungs clear to auscultation bilaterally, abdomen soft, nontender, nondistended Objective Last Vital Signs Temp 100.9 F H 02/07/24 08:31 Pulse 94 H 02/07/24 08:31 Resp 22 02/07/24 08:31 BP 177/106 H 02/07/24 08:31 Pulse Ox 96 02/07/24 08:41 Laboratory Results - last 24 hr 02/06/24 02/06/24 02/07/24 11:05 18:25 03:58 WBC 10.46 RBC 4.54 Hgb 13.8 13.7 12.8 L Hct 41.7 43.0 40.2 MCV 89 MCH 28.2 MCHC 31.8 L RDW 12.9 Plt Count 314 MPV 9.9 Immature Gran % 0.4 Neutrophils % 67.4 Lymphocytes % 20.7 Monocytes % 6.6 Eosinophils % 4.0 Basophils % 0.9 Nucleated RBC % 0.0 Absolute Neutrophils 7.06 H Absolute Lymphocytes 2.16 Absolute Monocytes 0.69 Absolute Eosinophils 0.42 Absolute Basophils 0.09 VBG pH 7.36 VBG pCO2 45 VBG pO2 64 VBG HCO3 25 VBG Total CO2 27 VBG O2 Saturation 91 VBG Base Excess 0 Sodium 143 Potassium 3.4 L Chloride 106 Carbon Dioxide 28.3 Anion Gap 8.7 BUN 5 L Creatinine 0.8 Est GFR (CKD-EPI 2020) 109.85 Glucose 72 L Calcium 8.6 Magnesium 1.8 Total Bilirubin 0.44 AST 17 ALT 16 Alkaline Phosphatase 20 L Total Protein 6.6 Albumin 2.6 L Procalcitonin < 0.1 ABO/Rh O Positive Antibody Screen NEGATIVE Time Spent with Patient Time Spent with Patient: >50 minutes Time was spent: preparing to see the patient(eg.review tests), obtaining and/or reviewing separately otained hiistory, ordering medications,tests, procedures, referring, communicating with other health career technical counselor, indepentently interpreting results, counseling the patient and care coordination
--- NOTE | 2024-02-07 11:31 | PHA.REVIEW2 ---
Pharmacy Admission Review Admission Clinical Review Admission Pharmacy Review: (Updated 02/06/24 @ 08:54 by Lanre López MD) Discharge planning issues (Acute) Hematemesis (Acute) On mechanically assisted ventilation (Acute) Endotracheally intubated (Acute) Cocaine abuse (Acute) Acute encephalopathy (Acute) No Known Allergies Allergy (Unverified 05/26/23 09:11) Resuscitation Status Full Code Height 5 ft 9 in Weight 68.6 kg Pharmacy Admission Review Renal Dosing Renal Dosing: BUN 5 mg/dL (7-18) L 02/07/24 03:58 Creatinine 0.8 mg/dL (0.70-1.30) 02/07/24 03:58 Medications needing adjustments: Reviewed (CrCl 110 mL/min) List of meds needing interventions: Current medications are okay Anticoagulation Anticoagulation: Hgb 12.8 g/dL (13.5-17.5) L 02/07/24 03:58 Hct 40.2 % (40.0-50.0) 02/07/24 03:58 Plt Count 314 10^3/uL (130-400) 02/07/24 03:58 INR 1.1 (0.9-1.1) 02/05/24 03:32 Creatinine 0.8 mg/dL (0.70-1.30) 02/07/24 03:58 DVT Prophylaxis: Reviewed (SCDs - blood in NG drainage, Hgb decreased from 14 to 12.8) Opiate Usage Evaluate Pain Scale/Pains Meds: Reviewed (Was started today on Subutex 8mg TID for opioid withdrawal) Scheduled Bowel Reg ordered if on Opiates?: No Relevant Labs Relevant Labs: Sodium 143 mmol/L (136-145) 02/07/24 03:58 Potassium 3.4 mmol/L (3.5-5.1) L 02/07/24 03:58 Chloride 106 mmol/L (98-107) 02/07/24 03:58 Phosphorus 4.0 mg/dL (2.6-4.7) 02/06/24 05:30 Magnesium 1.8 mg/dL (1.8-2.4) 02/07/24 03:58 Electrolytes, C-Reactive P, ESR: Reviewed (K 3.4, glucose 72, elevated temperature ranging from 37.7 to 38.3 this morning (0700 - 0900)) Cardiac Review Cardiac Review: Troponin I < 50 ng/L (< or =60) 02/05/24 07:20 Blood Pressure 176/84 1001 Blood Pressure 194/86 0902 Blood Pressure 177/106 0831 Blood Pressure 173/94 0731 Blood Pressure 165/100 0702 Blood Pressure 166/90 0642 Blood Pressure 158/88 0631 BP, HR, EF%: Reviewed (BP 176/84. HR WNL) QTc Review QTc: Reviewed (470 from 02/05/24) IV to PO Switch IV Medications: Reviewed (Extubated this morning but still NPO status - pantoprazole IV) Home Meds Home Med List reviewed: Reviewed Relevent Home Meds Not ordered & why?: No known home meds Current Meds Current Medication Order Review: Intervened Comments: Per nursing patient spit up the Subutex tablet. Going to see if provider will put in order for film. Pharmacy Antibiotic Review Relevant Labs: Relevant Labs 02/07/24 03:58 Procalcitonin < 0.1
--- NOTE | 2024-02-07 11:41 | PDOC.CMPRO ---
Date of service: 02/07/24 Time of Service: 11:41 Care Management Progress Note Progress Note Text Progress Note Text: Giovanni was lying in bed, restrained by handcuffs, with a border guard in the room when CM met with him. Per report, he had a hearing earlier today and is in the process of being released from custody. He reportedly made suicidal statements to ICU staff. CM discussed this with Giovanni who stated that he was just talking out of his ass, and that he does not feel suicidal. He then went on to talk about how he recently lost housing, and was tearful in stating how could they do that, just take away my house?. He appeared uncomfortable, did not make eye contact, was not able to remain still during the conversation, and at times CM was not able to understand him due to him talking quietly. He denied suicidal ideation to this underwriter solicitation director. He stated that he wants to leave, and that as soon as he is released from custody, he is leaving. CM informed him that he would be screened by [facility] for SI/HI prior to him being released; he was indifferent about this plan, and appeared fixated on leaving [facility]. [facility] arrived to complete their assessment for suicide risk; per [facility] clinician, he was unable to participate in the screening, although they stated that based on the information they had from the RN report and this underwriter solicitation director's interaction with Giovanni, he does not meet criteria to be held involuntarily at this time. Per report, Giovanni was released from custody this afternoon, and he promptly left AMA. Discharge Potential Discharge Needs: Other (coordinated return to [facility] Anticipated Barriers to Discharge: Medical Status Patient/Family Education Needs: Review discharge instructions, discuss Ask Me Three Transportation: Other (Giovanni left AMA; unclear how he was transported) Plan: Giovanni left AMA this afternoon. He was extubated this morning, and was not yet medically cleared for discharge. He was in custody of [facility] when he arrived, but was released after a hearing that he attended this morning via zoom. Once he was released from custody, he left AMA. CM spoke with him earlier in the day, and at that time he did not intend on remaining at [facility]. [facility] attempted to screen him, but was not able to complete a full assessment; from the information they had they did not feel that he met criteria to be held involuntarily. SDOH(Care Management) Screening Will the Patient Participate in the Screening?: Unable to obtain
[2024-02-07] MEDS: ACETAMINOPHEN 1,000 MG/100 ML BTL 400 MG IVPB (12:17)
--- NOTE | 2024-02-07 16:05 | DSE_ITS ---
Date of service: 02/07/24 Time of Service: 16:16 DS: Diagnosis Discharge Diagnosis (1) Acute encephalopathy: Status: Acute Asessment and Plan: Patient initially admitted-after requiring intubation for polysubstance use/overdose -He was successfully extubated on the morning of 02/07/2024 -later in the day patient had court derek in which it was determined that he would not remain in police custody -However, patient had made comment regarding SI to nurse which prompted [facility] evaluation for which they said they did have a recent hold of patient -Patient was determined to be at work, alert, oriented x 4, and had also made multiple comments to case management denying SI (please see case management documentation for further details), -Given the patient was aware of the risks of him leaving against medical vice including but not limited to rehospitalization or , and was determined that he was allowed to leave AGAINST MEDICAL ADVICE (2) Cocaine abuse: Status: Acute (3) Rectal foreign body: Status: Suspected (4) Endotracheally intubated: Status: Acute (5) Elevated CK: Status: Resolved (6) Hematemesis: Status: Acute (7) Discharge planning issues: Status: Acute Discharge Plan Disposition Patient Disposition: Against Medical Advice Condition: Good Discharge Details Reason For Visit: acute delirium, cocaine abuse Admit Date/Time: 02/05/24 14:32 Admit Provider: Lanre López Attending Provider: Lanre López Primary Care Provider: Unknown,Unknown Home Meds and New Rx's Prescriptions: No Action No Known Home Meds DS: Summary Time Spent with Patient providing and/or coordinating discharge services: Greater than 30 minutes Status at Discharge Functional status at discharge: independent ambulation Overall status at discharge: patient is back to baseline Mental Status: mental status grossly normal Speech and Movement: speech and movement normal Mood: congruent mood Affect: normal affect Quality:SDOH Health Related Social Needs: No Data to Display Referrals and interventions: unable to asses pt is artificially ventilated and sedated Exam Narrative Exam Narrative: unable to examin patient prior to him leaving AMA Psych Mental Status: mental status grossly normal Speech and Movement: speech and movement normal Mood: congruent mood Affect: normal affect DS: Data Vitals/I&O Vitals and I&O: Vital Signs Temperature 100.6 F H 02/07/24 15:01 Temperature Source Core 02/07/24 12:25 Pulse 89 02/07/24 15:01 Pulse Rhythm Irregular 02/05/24 05:36 Pulse Strength Normal 02/05/24 05:36 Pulse 86 02/07/24 15:01 Respiratory Rate 19 02/07/24 15:01 Respiratory Effort Normal, Non-Labored 02/07/24 12:25 Respiratory Depth Normal 02/07/24 07:33 Respiratory Pattern Normal 02/07/24 12:25 Blood Pressure 138/87 02/07/24 15:01 Blood Pressure Mean 104 02/07/24 15:01 Blood Pressure Position Sitting 02/07/24 12:25 Pulse Oximetry 95 02/07/24 13:01 Respiratory End-tidal CO2 36 02/07/24 06:42 Oxygen Delivery Method Room Air 02/07/24 12:25 Oxygen Flow Rate 0 02/07/24 12:25 Fraction of Inspired Oxygen (FIO2) 25 02/07/24 06:42 Pain Level 0 02/06/24 16:30 Comment gricel nuno applied 02/05/24 12:01 Intake & Output 02/06/24 02/07/24 02/07/24 17:59 05:59 17:59 Intake Total 1426.710 / 1426.710 438.039 / 1864.749 482.149 / 482.149 Output Total 1350 / 1350 1400 / 2750 550 / 550 Balance 76.710 / 76.710 -961.961 / -885.251 -67.851 / -67.851 Weight 151 lb 3.794 oz Intake: IV 1426.710 / 1426.710 438.039 / 1864.749 482.149 / 482.149 Output: Gastric Drainage 450 / 450 Right Nare 450 / 450 Urine 900 / 900 1400 / 2300 550 / 550 Other: Urine Color Green Yellow Yellow Green Green Urine Appearance Clear Clear Clear Comment castillo present Castillo intact, patent, and draining Data Completed and Pending Labs on day of discharge: Labs from last 24 hours 02/07/24 02/06/24 03:58 18:25 WBC 10.46 RBC 4.54 Hgb 12.8 L 13.7 Hct 40.2 43.0 MCV 89 MCH 28.2 MCHC 31.8 L RDW 12.9 Plt Count 314 MPV 9.9 Immature Gran % 0.4 Neutrophils % 67.4 Lymphocytes % 20.7 Monocytes % 6.6 Eosinophils % 4.0 Basophils % 0.9 Nucleated RBC % 0.0 Absolute Neutrophils 7.06 H Absolute Lymphocytes 2.16 Absolute Monocytes 0.69 Absolute Eosinophils 0.42 Absolute Basophils 0.09 VBG pH 7.36 VBG pCO2 45 VBG pO2 64 VBG HCO3 25 VBG Total CO2 27 VBG O2 Saturation 91 VBG Base Excess 0 Sodium 143 Potassium 3.4 L Chloride 106 Carbon Dioxide 28.3 Anion Gap 8.7 BUN 5 L Creatinine 0.8 Est GFR (CKD-EPI 2020) 109.85 Glucose 72 L Calcium 8.6 Magnesium 1.8 Total Bilirubin 0.44 AST 17 ALT 16 Alkaline Phosphatase 20 L Total Protein 6.6 Albumin 2.6 L Procalcitonin < 0.1 Preliminary micro results at discharge 02/06/24 07:45 Sputum Culture - Preliminary Sputum Normal Dejah PFSH All Active Problems (Updated 02/06/24 @ 08:54 by Lanre López MD) Discharge planning issues (Acute) Hematemesis (Acute) On mechanically assisted ventilation (Acute) Endotracheally intubated (Acute) Cocaine abuse (Acute) Acute encephalopathy (Acute) Closed fracture of left proximal humerus (Acute 05/19/23) Left elbow pain (Acute) Social History Smoking/Tobacco Use Status: Current every day Tobacco Type: cigarettes Smoking risk assessment performed?: Yes Drug use: Daily Substance use type: marijuana, crack/cocaine and opiates Current gender identity: male Time Spent with Patient Time Spent with Patient: <45 minutes Time was spent: preparing to see the patient(eg.review tests), obtaining and/or reviewing separately otained hiistory, ordering medications,tests, procedures, referring, communicating with other health associate director career services, indepentently interpreting results, counseling the patient and care coordination
== END 2024-02-07 16:02 | disposition left against medical advice (07) | DRG 917 ==
LOC: ER 10:32 → ICU 15:07
PROVIDERS: Family Medicine; Student in an Organized Health Care Education/Training Program; Admitting Provider Internal Medicine; Emergency Provider Emergency Medicine; Visit Provider Internal Medicine
DX: T40.5X1A Poisoning by cocaine, accidental (unintentional), initial encounter (principal); G92.8 Other toxic encephalopathy; K29.61 Other gastritis with bleeding; K25.4 Chronic or unspecified gastric ulcer with hemorrhage; F11.23 Opioid dependence with withdrawal; R45.851 Suicidal ideations; F14.10 Cocaine abuse, uncomplicated; F17.210 Nicotine dependence, cigarettes, uncomplicated; F12.90 Cannabis use, unspecified, uncomplicated; W18.2XXA Fall in (into) shower or empty bathtub, initial encounter; S00.83XA Contusion of other part of head, initial encounter; I10 Essential (primary) hypertension; R25.1 Tremor, unspecified; D72.829 Elevated white blood cell count, unspecified; R00.0 Tachycardia, unspecified; Z78.1 Physical restraint status; R79.89 Other specified abnormal findings of blood chemistry
CPT/HCPCS: 45330; 00123; 31500; 36415; 45300; 51702; 71275; 80053; 80307; 82550; 82805; 84145; 86850; 86900; 86901; 93005; 96365; 96366; 96367; 96375; 96376; 99291; J1650; 70450; 71045; 74176; 80320; 80329; 81003; 81015; 82140; 83605; 83735; 84100; 84443; 84484; 85014; 85018; 85025; 85610; 85730; 87070; 87205; 93010; 94002; 94003; 99238; J0131; J0461; J1170; J1953; J2060; J2250; J2470; J2704; J3010; J3360; J3480; J3490